=== PATIENT | male | born 1940 | race Caucasian/White ===

== ENCOUNTER 2017-09-16 14:18 | Inpatient (IN) | payer MEDICARE, OTHER ==
[2017-09-16] MEDS ORDERED: ONDANSETRON 4 MG INJ IV (18:00)
[2017-09-16] MEDS ORDERED: GLUCOSE GEL 15 GRAM TUBE BUCCAL (18:00)
[2017-09-16] MEDS ORDERED: DEXTROSE 50% 50 ML SYRINGE IV ×2 (18:00)
[2017-09-16] MEDS ORDERED: GLUCAGON 1 MG INJ IM (18:00)
[2017-09-16] MEDS ORDERED: GLUCOSE GEL 15 GRAM TUBE PO ×2 (18:00)
[2017-09-16] MEDS: SOD CHLORIDE 0.9% 1,000 ML IV (18:06)
[2017-09-16 19:40] LABS: ANION GAP 15 (8-16); BLOOD UREA NITROGEN 37 mg/dl (7-20); CALCIUM 8.3 mg/dl (8.4-10.2); CARBON DIOXIDE 23 mmol/L (21-31); CHLORIDE 105 mmol/L (97-110); CREATININE 1.43 mg/dl (0.61-1.24); GLUCOSE 166 mg/dl (70-220); POTASSIUM 5.1 mmol/L (3.5-5.1); SODIUM 138 mmol/L (135-144)
[2017-09-16] MEDS: ATORVASTATIN 40 MG TAB PO (20:26)
[2017-09-16] MEDS: CEFAZOLIN 2 GM/50 ML (PMX) 50 ML IVPB (20:27)
[2017-09-16] MEDS: METOPROLOL 25 MG TAB PO (20:27)
[2017-09-16] MEDS: INSULIN ASPART [NOVOLOG] 3 ML PEN SC (20:31)
[2017-09-16 20:47] LABS: ADD UMIC NO; UR ASCORBIC ACID 20 mg/dL (NEGATIVE); UR BILIRUBIN (Dip) NEGATIVE (NEGATIVE); UR BLOOD (Dip) NEGATIVE (NEGATIVE); UR CLARITY CLEAR (CLEAR); UR COLOR YELLOW (YELLOW); UR GLUCOSE (Dip) NEGATIVE (NEGATIVE); UR KETONES (Dip) NEGATIVE (NEGATIVE); UR LEUKOCYTE ESTERASE (Dip) NEGATIVE Leu/ul (NEGATIVE); UR NITRITE (Dip) NEGATIVE (NEGATIVE); UR SPECIFIC GRAVITY (Dip) 1.018 (1.003-1.030); UR TOTAL PROTEIN (Dip) NEGATIVE (NEGATIVE); UR UROBILINOGEN (Dip) NEGATIVE (NEGATIVE)
[2017-09-16 20:58] LABS: SODIUM,URINE RANDOM 75 mmol/L (30-90)
[2017-09-16 20:58] LABS: CREATININE,URINE RANDOM 98.32 mg/dl (20-370)
[2017-09-17] MEDS: INSULIN ASPART [NOVOLOG] 3 ML PEN SC ×5 (01:00→17:00)
[2017-09-17] MEDS: ACCU-CHEK XX ×8 (02:00→23:37)
[2017-09-17 08:45] LABS: ADD MAN DIFF? NO
[2017-09-17] MEDS: FAMOTIDINE 20 MG INJ IV ×2 (08:50→20:18)
[2017-09-17] MEDS: ASPIRIN 81 MG TAB PO (08:51)
[2017-09-17] MEDS: METOPROLOL 25 MG TAB PO (09:00)
[2017-09-17 09:05] LABS: ABNORMAL IP MESSAGE 1; BASOPHILS % 0.3 % (0.0-2.0); EOSINOPHILS # 0.1 10^3/ul (0.0-0.5); EOSINOPHILS % 1.1 % (0.0-7.0); HEMOGLOBIN 11.1 g/dl (14.0-18.0); LYMPHOCYTES # 1.2 10^3/ul (0.8-2.9); MEAN CORPUSCULAR HEMOGLOBIN 33.9 pg (29.0-33.0); MEAN CORPUSCULAR HGB CONC 32.6 g/dl (32.0-37.0); MEAN PLATELET VOLUME 13.6 fl (7.4-10.4); MONOCYTE # 0.7 10^3/ul (0.3-0.9); MONOCYTES % 7.5 % (0.0-11.0); NEUTROPHIL # 7.6 10^3/ul (1.6-7.5); NEUTROPHILS % 77.1 % (39.0-77.0); PLATELET COUNT 96 10^3/UL (140-415); POSITIVE DIFF @See below; RED BLOOD COUNT 3.27 10^6/ul (4.70-6.10); RED CELL DISTRIBUTION WIDTH 14.6 % (11.5-14.5)
[2017-09-17 09:05] LABS: WHITE BLOOD COUNT 9.8 10^3/ul (4.8-10.8)
[2017-09-17 09:20] LABS: ANION GAP 14 (8-16); BLOOD UREA NITROGEN 36 mg/dl (7-20); CALCIUM 8.6 mg/dl (8.4-10.2); CARBON DIOXIDE 26 mmol/L (21-31); CHLORIDE 109 mmol/L (97-110); CREATININE 1.33 mg/dl (0.61-1.24); GLUCOSE 103 mg/dl (70-220); POTASSIUM 5.2 mmol/L (3.5-5.1); SODIUM 144 mmol/L (135-144)
[2017-09-17 09:23] LABS: MAGNESIUM 1.9 mg/dl (1.7-2.5)
[2017-09-17] MEDS: hydrALAzine 20 MG INJ IV (11:51)
[2017-09-17] MEDS ORDERED: VANCOMYCIN 1 GM INJ (12:09)
[2017-09-17] MEDS ORDERED: SUCCINYLCHOLINE CHLORIDE 100 MG/5 ML SYG IV ×2 (12:48→13:03)
[2017-09-17] MEDS ORDERED: MIDAZOLAM 5 ML ×2 (12:48)
[2017-09-17] MEDS ORDERED: PROPOFOL 20 ML (12:48)
[2017-09-17] MEDS ORDERED: NITROGLYCERIN 50 MG/D5W (PMX) 250 ML (12:49)
[2017-09-17] MEDS ORDERED: PROTAMINE 250 MG INJ ×2 (12:49→16:17)
[2017-09-17] MEDS ORDERED: HEPARIN 1000 UNITS/ML 10 ML INJ ×3 (12:49→14:52)
[2017-09-17] MEDS ORDERED: ROCURONIUM 50 MG INJ (12:49)
[2017-09-17] MEDS: NORepinephrine 8MG/250 ML (PMX 250 ML IV (13:00)
[2017-09-17] MEDS: MILRINONE LACTATE 2 MG in SOD CHLORIDE 0.9% 50 ML IV (13:00)
[2017-09-17] MEDS: HEPARIN (10000 UNITS/ML) 10,000 UNIT, MILRINONE LACTATE 10 MG in SOD CHLORIDE 0.9% 1,00... SC (13:00)
[2017-09-17] MEDS: INSULIN HUMAN REGULAR 100 UNIT in SOD CHLORIDE 0.9% 99 ML IVPB (13:00)
[2017-09-17] MEDS: EPINEPHrine 4 MG in DEXTROSE 5% 246 ML IV (13:00)
[2017-09-17] MEDS ORDERED: ALBUMIN HUMAN 25% 300 ML (13:03)
[2017-09-17] MEDS ORDERED: CA CHLORIDE 10% 10 ML SYRINGE (13:04)
[2017-09-17] MEDS ORDERED: LIDOCAINE 100 MG SYRINGE (13:05)
[2017-09-17] MEDS ORDERED: POTASSIUM CHLORIDE 40 MEQ INJ (13:05)
[2017-09-17] MEDS ORDERED: MANNITOL 20% 250 ML IV (13:06)
[2017-09-17] MEDS ORDERED: PHENYLephrine 10 MG INJ (13:06)
[2017-09-17] MEDS ORDERED: MAGNESIUM SULFATE (MG) 50% 10 ML INJ (13:06)
[2017-09-17] MEDS ORDERED: PHENYLephrine (100 MCG/ML) 5ML SYG (13:07)
[2017-09-17] MEDS ORDERED: NA BICARBONATE 8.4% 50 ML SYG ×2 (13:08→15:27)
[2017-09-17] MEDS ORDERED: CEFAZOLIN 1 GM INJ (14:15)
[2017-09-17] MEDS ORDERED: morphine 10 MG INJ ×2 (14:28→14:54)
[2017-09-17] MEDS ORDERED: PROPOFOL 100 ML (14:30)
[2017-09-17] MEDS: ASPIRIN 600 MG SUPP PR (16:54)
[2017-09-17] MEDS: PAPAVERINE 60 MG INJ (16:55)
[2017-09-17] MEDS: HEPARIN 1000 UNITS/ML 10 ML INJ (16:56)
[2017-09-17] MEDS: POTASSIUM CHLORIDE 40 MEQ, CALCIUM CHLORIDE 10% 1 GM in DEXTROSE 5%-0.225% NACL 1,000 ML IV (17:24)
[2017-09-17] MEDS ORDERED: HYDROmorphONE 0.5 MG/0.5 ML SYG IV ×2 (17:30)
[2017-09-17] MEDS ORDERED: MAGNESIUM SULFATE 1 GM/D5W 100 ML IVPB (17:30)
[2017-09-17] MEDS ORDERED: ACETAMINOPHEN 325 MG TAB PO (17:30)
[2017-09-17] MEDS ORDERED: POTASSIUM CHLORIDE 50 ML IVPB (17:30)
[2017-09-17] MEDS ORDERED: OXYCODONE/ACETAMINOPHEN (5/325) TAB PO (17:30)
[2017-09-17] MEDS ORDERED: ONDANSETRON 4 MG INJ IV (17:30)
[2017-09-17] MEDS ORDERED: DEXTROSE 50% 50 ML SYRINGE IV ×2 (17:30)
[2017-09-17 17:55] LABS: ADD MAN DIFF? NO
[2017-09-17 17:56] LABS: WHITE BLOOD COUNT 16.6 10^3/ul (4.8-10.8)
[2017-09-17 17:56] LABS: ABNORMAL IP MESSAGE 1; BASOPHIL # 0.1 10^3/ul (0.0-0.1); BASOPHILS % 0.3 % (0.0-2.0); EOSINOPHILS # 0.2 10^3/ul (0.0-0.5); EOSINOPHILS % 1.2 % (0.0-7.0); HEMATOCRIT 28.2 % (42.0-52.0); HEMOGLOBIN 9.4 g/dl (14.0-18.0); LYMPHOCYTES % 6.3 % (15.0-51.0); MEAN CORPUSCULAR HEMOGLOBIN 34.4 pg (29.0-33.0); MEAN CORPUSCULAR HGB CONC 33.3 g/dl (32.0-37.0); MEAN CORPUSCULAR VOLUME 103.3 fl (82.0-101.0); MEAN PLATELET VOLUME 12.7 fl (7.4-10.4); MONOCYTE # 1.1 10^3/ul (0.3-0.9); MONOCYTES % 6.7 % (0.0-11.0); NEUTROPHIL # 13.7 10^3/ul (1.6-7.5); NEUTROPHILS % 82.5 % (39.0-77.0); NUCLEATED RED BLOOD CELLS% 0.1 /100WBC (0.0-0.0); PLATELET COUNT 73 10^3/UL (140-415); POSITIVE DIFF @See below; RED BLOOD COUNT 2.73 10^6/ul (4.70-6.10); RED CELL DISTRIBUTION WIDTH 14.7 % (11.5-14.5)
[2017-09-17 18:16] LABS: INR 1.32; PARTIAL THROMBOPLASTIN TIME 32.3 Sec (25.0-35.0); PROTIME 16.6 Sec (11.9-14.9); PT RATIO 1.3
[2017-09-17 18:18] LABS: ANION GAP 15 (8-16); BLOOD UREA NITROGEN 32 mg/dl (7-20); CARBON DIOXIDE 23 mmol/L (21-31); CHLORIDE 111 mmol/L (97-110); CREATININE 1.35 mg/dl (0.61-1.24); GLUCOSE 115 mg/dl (70-220); MAGNESIUM 2.5 mg/dl (1.7-2.5); POTASSIUM 5.1 mmol/L (3.5-5.1); SODIUM 144 mmol/L (135-144)
[2017-09-17 19:44] LABS: AADO2 Arterial 520.3 mmHg (7.0-24.0); Arterial Base Excess -5.3 mmol/L (-3.0-3); Arterial Blood Gas Oxygen Sat 98.1 mmHG (95.0-100.0); Arterial COHb 0.3 % (0.0-3.0); Arterial Fraction of Oxyhgb 97.7 % (93.0-99.0); Arterial HCO3 20.3 mmol/L (22.0-26.0); Arterial MetHb 0.1 % (0.0-1.5); MODE VENT - AC; Site A-Line
[2017-09-17 19:46] LABS: MODE VENT - AC; MetHgb Mixed Venous 0.3 %; Mixed Venous COHb 0.1 %; Mixed Venous Fraction OxyHgb 60.6 %; Mixed Venous Oxygen Sat 60.8 mmHG (65.0-75.0); Mixed Venous Total Hemglobin 10.5 g/dl; Sample Type BLMV; Site VENOUS LINE
[2017-09-17] MEDS: CALCIUM CHLORIDE 10% 1 GM in DEXTROSE 5%-0.225% NACL 1,000 ML IV (19:53)
[2017-09-17] MEDS: MILRINONE LACTATE 100 ML IV (20:07)
[2017-09-17] MEDS: INSULIN HUMAN REGULAR 100 UNIT in SOD CHLORIDE 0.9% 99 ML IV (20:47)
[2017-09-17] MEDS ORDERED: FAMOTIDINE 20 MG TAB PO (21:00)
[2017-09-17] MEDS: CEFAZOLIN 1 GM/50 ML (PMX) 50 ML IVPB (21:39)
[2017-09-17] MEDS: PHENYLephrine 20MG IN 250 ML 250 ML IV (22:14)
[2017-09-17] MEDS ORDERED: ALBUMIN HUMAN 5% 250 ML (22:29)
[2017-09-17] MEDS: ALBUMIN HUMAN 5% 250 ML IV (22:38)
[2017-09-18] MEDS: ALBUMIN HUMAN 5% 250 ML IV (00:07)
[2017-09-18] MEDS: ACCU-CHEK XX ×16 (00:23→21:13)
[2017-09-18] MEDS ORDERED: FUROSEMIDE 40 MG INJ (01:03)
[2017-09-18] MEDS: FUROSEMIDE 40 MG INJ IV (01:06)
[2017-09-18] MEDS: NITROGLYCERIN 50 MG/D5W (PMX) 250 ML IV (03:24)
[2017-09-18 04:20] LABS: ADD MAN DIFF? NO
[2017-09-18 04:24] LABS: WHITE BLOOD COUNT 15.6 10^3/ul (4.8-10.8)
[2017-09-18 04:24] LABS: ABNORMAL IP MESSAGE 1; BASOPHILS % 0.1 % (0.0-2.0); HEMATOCRIT 27.3 % (42.0-52.0); HEMOGLOBIN 8.8 g/dl (14.0-18.0); LYMPHOCYTES # 0.3 10^3/ul (0.8-2.9); LYMPHOCYTES % 1.7 % (15.0-51.0); MEAN CORPUSCULAR HGB CONC 32.2 g/dl (32.0-37.0); MEAN CORPUSCULAR VOLUME 105.4 fl (82.0-101.0); MEAN PLATELET VOLUME 13.6 fl (7.4-10.4); MONOCYTE # 1.4 10^3/ul (0.3-0.9); MONOCYTES % 8.8 % (0.0-11.0); NEUTROPHIL # 13.7 10^3/ul (1.6-7.5); NEUTROPHILS % 87.4 % (39.0-77.0); PLATELET COUNT 72 10^3/UL (140-415); POSITIVE DIFF @See below; RED BLOOD COUNT 2.59 10^6/ul (4.70-6.10); RED CELL DISTRIBUTION WIDTH 15.1 % (11.5-14.5)
[2017-09-18 04:41] LABS: ANION GAP 18 (8-16); BLOOD UREA NITROGEN 39 mg/dl (7-20); CALCIUM 9.3 mg/dl (8.4-10.2); CARBON DIOXIDE 24 mmol/L (21-31); CHLORIDE 109 mmol/L (97-110); CREATININE 2.19 mg/dl (0.61-1.24); GLUCOSE 145 mg/dl (70-220); INR 1.21; MAGNESIUM 2.3 mg/dl (1.7-2.5); PHOSPHORUS 6.6 mg/dl (2.5-4.9); POTASSIUM 5.4 mmol/L (3.5-5.1); PROTIME 15.5 Sec (11.9-14.9); PT RATIO 1.2; SODIUM 146 mmol/L (135-144)
[2017-09-18 04:42] LABS: PARTIAL THROMBOPLASTIN TIME 28.1 Sec (25.0-35.0)
[2017-09-18 05:05] LABS: AADO2 Arterial 137.7 mmHg (7.0-24.0); Arterial Base Excess -3.8 mmol/L (-3.0-3); Arterial Blood Gas Oxygen Sat 95.9 mmHG (95.0-100.0); Arterial COHb 0.3 % (0.0-3.0); Arterial Fraction of Oxyhgb 95.4 % (93.0-99.0); Arterial HCO3 22.5 mmol/L (22.0-26.0); Arterial MetHb 0.2 % (0.0-1.5); Arterial Total Hemglobin 9.8 g/dl (12.0-18.0); Arterial pCO2 46.5 mmhg (35-45); Blood Gas PS 10; MODE VENT - CPAP; Site A-Line
[2017-09-18] MEDS: DOPamine-D5W 1.6 MG/ML 250 ML IV (05:34)
[2017-09-18] MEDS: CEFAZOLIN 1 GM/50 ML (PMX) 50 ML IVPB ×2 (05:36→14:50)
[2017-09-18] MEDS: BUMETANIDE 1 MG INJ IV (06:27)
[2017-09-18] MEDS: OXYCODONE/ACETAMINOPHEN (5/325) TAB PO (08:11)
[2017-09-18] MEDS: FAMOTIDINE 20 MG INJ IV ×2 (08:46→21:09)
[2017-09-18] MEDS: ASPIRIN 325 MG TAB PO (10:16)
[2017-09-18 10:56] LABS: HEMATOCRIT 26.6 % (42.0-52.0); HEMOGLOBIN 8.7 g/dl (14.0-18.0)
[2017-09-18 11:07] LABS: HEMOGLOBIN A1C 6.8 % (0-5.9)
[2017-09-18 11:15] LABS: ALBUMIN 3.7 g/dl (3.3-4.9); ANION GAP 19 (8-16); BLOOD UREA NITROGEN 44 mg/dl (7-20); CALCIUM 9.2 mg/dl (8.4-10.2); CARBON DIOXIDE 23 mmol/L (21-31); CHLORIDE 107 mmol/L (97-110); CREATININE 2.64 mg/dl (0.61-1.24); GLUCOSE 166 mg/dl (70-220); PHOSPHORUS 6.8 mg/dl (2.5-4.9); POTASSIUM 5.2 mmol/L (3.5-5.1); SODIUM 144 mmol/L (135-144)
[2017-09-18 12:51] LABS: ANION GAP 17 (8-16); BLOOD UREA NITROGEN 44 mg/dl (7-20); CALCIUM 9.1 mg/dl (8.4-10.2); CARBON DIOXIDE 24 mmol/L (21-31); CHLORIDE 108 mmol/L (97-110); CREATININE 2.78 mg/dl (0.61-1.24); GLUCOSE 141 mg/dl (70-220); SODIUM 144 mmol/L (135-144)
[2017-09-18] MEDS: CALCIUM CHLORIDE 10% 1 GM in DEXTROSE 5%-0.225% NACL 1,000 ML IV (13:17)
[2017-09-18] MEDS: SOD CHLORIDE 0.9% 1,000 ML IV (14:52)
[2017-09-18] MEDS: SOD CHLORIDE 0.9% 500 ML IV (14:53)
[2017-09-18 15:11] LABS: CREATININE, RANDOM URINE 119 mg/dL (20-370); MICROALBUMIN 0.3 mg/dL; MICROALBUMIN/CREATININE RATIO 3 (<30)
[2017-09-18] MEDS ORDERED: GLUCOSE GEL 15 GRAM TUBE BUCCAL (15:30)
[2017-09-18] MEDS ORDERED: DEXTROSE 50% 50 ML SYRINGE IV ×2 (15:30)
[2017-09-18] MEDS ORDERED: GLUCAGON 1 MG INJ IM (15:30)
[2017-09-18] MEDS ORDERED: GLUCOSE GEL 15 GRAM TUBE PO ×2 (15:30)
[2017-09-18] MEDS: INSULIN ASPART [NOVOLOG] 3 ML PEN SC ×2 (17:35→21:00)
[2017-09-18 18:38] LABS: HEMATOCRIT 27.2 % (42.0-52.0)
[2017-09-18 19:17] LABS: ANION GAP 20 (8-16); BLOOD UREA NITROGEN 47 mg/dl (7-20); CALCIUM 8.7 mg/dl (8.4-10.2); CARBON DIOXIDE 20 mmol/L (21-31); CHLORIDE 107 mmol/L (97-110); CREATININE 3.28 mg/dl (0.61-1.24); GLUCOSE 155 mg/dl (70-220); POTASSIUM 5.4 mmol/L (3.5-5.1); SODIUM 142 mmol/L (135-144)
[2017-09-18] MEDS: INSULIN GLARGINE [LANtus] 3 ML PEN SC (21:11)
[2017-09-18] MEDS: FUROSEMIDE 20 MG INJ IV (21:54)
[2017-09-19] MEDS: SOD CHLORIDE 0.9% 1,000 ML IV (04:23)
[2017-09-19 04:55] LABS: ADD MAN DIFF? NO
[2017-09-19 05:03] LABS: ABNORMAL IP MESSAGE 1; BASOPHILS % 0.1 % (0.0-2.0); HEMATOCRIT 26.8 % (42.0-52.0); HEMOGLOBIN 8.5 g/dl (14.0-18.0); LYMPHOCYTES # 0.4 10^3/ul (0.8-2.9); LYMPHOCYTES % 1.8 % (15.0-51.0); MEAN CORPUSCULAR HGB CONC 31.7 g/dl (32.0-37.0); MEAN CORPUSCULAR VOLUME 107.2 fl (82.0-101.0); MEAN PLATELET VOLUME 14.5 fl (7.4-10.4); MONOCYTE # 1.8 10^3/ul (0.3-0.9); MONOCYTES % 7.9 % (0.0-11.0); NEUTROPHIL # 19.7 10^3/ul (1.6-7.5); NEUTROPHILS % 88.6 % (39.0-77.0); NUCLEATED RED BLOOD CELLS% 0.1 /100WBC (0.0-0.0); PLATELET COUNT 64 10^3/UL (140-415); POSITIVE DIFF @See below; RED CELL DISTRIBUTION WIDTH 15.4 % (11.5-14.5)
[2017-09-19 05:03] LABS: WHITE BLOOD COUNT 22.3 10^3/ul (4.8-10.8)
[2017-09-19 05:25] LABS: INR 1.31; PROTIME 16.5 Sec (11.9-14.9); PT RATIO 1.3
[2017-09-19 05:26] LABS: PARTIAL THROMBOPLASTIN TIME 28.9 Sec (25.0-35.0)
[2017-09-19 05:29] LABS: ANION GAP 23 (8-16); BLOOD UREA NITROGEN 55 mg/dl (7-20); CALCIUM 8.3 mg/dl (8.4-10.2); CARBON DIOXIDE 20 mmol/L (21-31); CHLORIDE 107 mmol/L (97-110); CREATININE 4.06 mg/dl (0.61-1.24); GLUCOSE 180 mg/dl (70-220); POTASSIUM 5.7 mmol/L (3.5-5.1); SODIUM 144 mmol/L (135-144)
[2017-09-19] MEDS: NA POLYST SULFON 15 GM/60 ML BTL PO (06:03)
[2017-09-19] MEDS: BUMETANIDE 3 MG in DEXTROSE 5% 18 ML IV (08:26)
[2017-09-19] MEDS: FAMOTIDINE 20 MG INJ IV ×2 (08:31→20:34)
[2017-09-19] MEDS: INSULIN ASPART [NOVOLOG] 3 ML PEN SC ×5 (08:50→21:00)
[2017-09-19] MEDS: ASPIRIN 325 MG TAB PO (08:51)
[2017-09-19] MEDS: CLOPIDOGREL 75 MG TAB PO (10:00)
[2017-09-19] MEDS ORDERED: METOPROLOL (XL) 25 MG TAB PO (10:00)
[2017-09-19] MEDS: SOD CHLORIDE 0.9% 500 ML IV ×4 (11:36→21:58)
[2017-09-19 12:09] LABS: LACTIC ACID 1.8 mmol/L (0.5-2.0)
[2017-09-19 12:20] LABS: ALANINE AMINOTRANSFERASE 20 IU/L (13-69); ALBUMIN 3.8 g/dl (3.3-4.9); ALBUMIN/GLOBULIN RATIO 1.65; ALKALINE PHOSPHATASE 53 IU/L (42-121); ANION GAP 23 (8-16); ASPARTATE AMINO TRANSFERASE 19 IU/L (15-46); BLOOD UREA NITROGEN 59 mg/dl (7-20); CARBON DIOXIDE 19 mmol/L (21-31); CHLORIDE 109 mmol/L (97-110); CREATININE 4.69 mg/dl (0.61-1.24); GLUCOSE 199 mg/dl (70-220); POTASSIUM 5.1 mmol/L (3.5-5.1); SODIUM 146 mmol/L (135-144); TOTAL PROTEIN 6.1 g/dl (6.1-8.1)
[2017-09-19] MEDS: METOPROLOL 25 MG TAB NGT (13:00)
[2017-09-19] MEDS ORDERED: VANCOMYCIN IV PER PHARMACY XX (19:30)
[2017-09-19] MEDS: HEPARIN 1000 UNITS/ML 10 ML INJ CATHETER ×2 (19:56→23:51)
[2017-09-19] MEDS: INSULIN GLARGINE [LANtus] 3 ML PEN SC (20:33)
[2017-09-19] MEDS: ATORVASTATIN 40 MG TAB PO (21:00)
[2017-09-19] MEDS: VANCOMYCIN 2 GM in DEXTROSE 5% 500 ML IVPB (23:53)
[2017-09-20] MEDS: INSULIN ASPART [NOVOLOG] 3 ML PEN SC ×6 (01:37→20:35)
[2017-09-20] MEDS ORDERED: DILTIAZEM 25 MG INJ ×3 (01:41→02:08)
[2017-09-20] MEDS: ACCU-CHEK XX (01:51)
[2017-09-20 02:12] LABS: AADO2 Arterial 123.7 mmHg (7.0-24.0); Allen Test ACCEPTAB; Arterial Base Excess 0.1 mmol/L (-3.0-3); Arterial Blood Gas Oxygen Sat 97.2 mmHG (95.0-100.0); Arterial COHb 0.3 % (0.0-3.0); Arterial Fraction of Oxyhgb 96.8 % (93.0-99.0); Arterial HCO3 25.3 mmol/L (22.0-26.0); Arterial MetHb 0.1 % (0.0-1.5); Arterial Total Hemglobin 9.3 g/dl (12.0-18.0); Arterial pCO2 43.6 mmhg (35-45); MODE MASK - SIMPLE; Site Left Radial
[2017-09-20] MEDS: DILTIAZEM 25 MG INJ IV (02:38)
[2017-09-20] MEDS: AMIODARONE 150MG/D5W BOLUS 100 ML IV (02:38)
[2017-09-20] MEDS: AMIODARONE 900 MG in DEXTROSE 5% 482 ML IV (03:42)
[2017-09-20 05:01] LABS: HEPATITIS B SURFACE ANTIGEN NEGATIVE (NEGATIVE)
[2017-09-20 05:30] LABS: ADD MAN DIFF? NO
[2017-09-20 05:42] LABS: ABNORMAL IP MESSAGE 1; BASOPHILS % 0.2 % (0.0-2.0); HEMATOCRIT 24.4 % (42.0-52.0); HEMOGLOBIN 8.2 g/dl (14.0-18.0); LYMPHOCYTES # 0.4 10^3/ul (0.8-2.9); LYMPHOCYTES % 1.9 % (15.0-51.0); MEAN CORPUSCULAR HEMOGLOBIN 34.7 pg (29.0-33.0); MEAN CORPUSCULAR HGB CONC 33.6 g/dl (32.0-37.0); MEAN CORPUSCULAR VOLUME 103.4 fl (82.0-101.0); MONOCYTE # 1.3 10^3/ul (0.3-0.9); MONOCYTES % 6.4 % (0.0-11.0); NEUTROPHIL # 17.6 10^3/ul (1.6-7.5); NEUTROPHILS % 88.4 % (39.0-77.0); NUCLEATED RED BLOOD CELLS% 0.2 /100WBC (0.0-0.0); PLATELET COUNT 58 10^3/UL (140-415); POSITIVE DIFF @See below; RED BLOOD COUNT 2.36 10^6/ul (4.70-6.10); RED CELL DISTRIBUTION WIDTH 15.1 % (11.5-14.5)
[2017-09-20 05:42] LABS: WHITE BLOOD COUNT 19.9 10^3/ul (4.8-10.8)
[2017-09-20] MEDS: SOD CHLORIDE 0.9% 500 ML IV ×3 (05:51→21:19)
[2017-09-20 06:33] LABS: ALANINE AMINOTRANSFERASE 24 IU/L (13-69); ALBUMIN 3.5 g/dl (3.3-4.9); ALKALINE PHOSPHATASE 57 IU/L (42-121); ANION GAP 20 (8-16); ASPARTATE AMINO TRANSFERASE 20 IU/L (15-46); BILIRUBIN,INDIRECT 0.1 mg/dl (0-1.1); BILIRUBIN,TOTAL 0.1 mg/dl (0.2-1.3); BLOOD UREA NITROGEN 50 mg/dl (7-20); CALCIUM 7.5 mg/dl (8.4-10.2); CARBON DIOXIDE 24 mmol/L (21-31); CHLORIDE 103 mmol/L (97-110); CREATININE 3.92 mg/dl (0.61-1.24); GLUCOSE 215 mg/dl (70-220); POTASSIUM 4.1 mmol/L (3.5-5.1); SODIUM 143 mmol/L (135-144)
[2017-09-20 06:36] LABS: PHOSPHORUS 5.9 mg/dl (2.5-4.9)
[2017-09-20 06:36] LABS: MAGNESIUM 1.9 mg/dl (1.7-2.5)
[2017-09-20] MEDS: FAMOTIDINE 20 MG INJ IV ×2 (08:24→20:13)
[2017-09-20] MEDS: ASPIRIN 81 MG TAB PO (09:10)
[2017-09-20] MEDS: BISACODYL 10 MG SUPP PR ×2 (09:10→20:13)
[2017-09-20] MEDS: CLOPIDOGREL 75 MG TAB PO (09:10)
[2017-09-20] MEDS: METOPROLOL 25 MG TAB NGT (09:12)
[2017-09-20] MEDS: POLYETHYLENE GLYCOL 17 GM PACKET PO ×2 (10:08→21:19)
[2017-09-20] MEDS: CEFEPIME 1GM/50 ML (PMX) 50 ML IVPB (12:06)
[2017-09-20] MEDS: POLYETHYLENE GLYCOL 3350 119 GM POWDER PO (12:21)
[2017-09-20] MEDS ORDERED: METOPROLOL 25 MG TAB NGT (14:00)
[2017-09-20 15:27] LABS: AADO2 Arterial 126.7 mmHg (7.0-24.0); Arterial Base Excess -4.2 mmol/L (-3.0-3); Arterial Blood Gas Oxygen Sat 90.7 mmHG (95.0-100.0); Arterial COHb 0.1 % (0.0-3.0); Arterial Fraction of Oxyhgb 90.6 % (93.0-99.0); Arterial HCO3 20.5 mmol/L (22.0-26.0); Arterial MetHb 0 % (0.0-1.5); Arterial Total Hemglobin 11.8 g/dl (12.0-18.0); Arterial pCO2 36.1 mmhg (35-45); MODE NASAL CANNULA; Site Right Brachial
[2017-09-20] MEDS: INSULIN GLARGINE [LANtus] 3 ML PEN SC (20:17)
[2017-09-20] MEDS ORDERED: SOD CHLORIDE 0.9% 500 ML IVPB (21:00)
[2017-09-20] MEDS: ATORVASTATIN 40 MG TAB PO (21:19)
[2017-09-20] MEDS: AMIODARONE 200 MG TAB NGT (21:19)
[2017-09-20] MEDS: HEPARIN 1000 UNITS/ML 10 ML INJ CATHETER (23:23)
[2017-09-21] MEDS: ACCU-CHEK XX (00:54)
[2017-09-21] MEDS: INSULIN ASPART [NOVOLOG] 3 ML PEN SC ×6 (00:54→21:00)
[2017-09-21] MEDS: SOD CHLORIDE 0.9% 500 ML IV ×3 (03:00→21:02)
[2017-09-21 06:14] LABS: ADD MAN DIFF? NO
[2017-09-21 06:18] LABS: ABNORMAL IP MESSAGE 1; BASOPHILS % 0.2 % (0.0-2.0); EOSINOPHILS % 0.1 % (0.0-7.0); HEMATOCRIT 22.8 % (42.0-52.0); HEMOGLOBIN 7.9 g/dl (14.0-18.0); LYMPHOCYTES # 0.6 10^3/ul (0.8-2.9); LYMPHOCYTES % 3.2 % (15.0-51.0); MEAN CORPUSCULAR HGB CONC 34.6 g/dl (32.0-37.0); MEAN CORPUSCULAR VOLUME 100.9 fl (82.0-101.0); MONOCYTE # 1.2 10^3/ul (0.3-0.9); MONOCYTES % 6.1 % (0.0-11.0); NEUTROPHIL # 16.5 10^3/ul (1.6-7.5); NEUTROPHILS % 84.9 % (39.0-77.0); NUCLEATED RED BLOOD CELLS # 0.1 10^3/ul (0.0-0.0); NUCLEATED RED BLOOD CELLS% 0.5 /100WBC (0.0-0.0); POSITIVE DIFF @See below; RED BLOOD COUNT 2.26 10^6/ul (4.70-6.10); RED CELL DISTRIBUTION WIDTH 14.7 % (11.5-14.5)
[2017-09-21 06:18] LABS: WHITE BLOOD COUNT 19.4 10^3/ul (4.8-10.8)
[2017-09-21 06:26] LABS: PLATELET COUNT 72 10^3/UL (140-415)
[2017-09-21 06:43] LABS: PHOSPHORUS 7.2 mg/dl (2.5-4.9)
[2017-09-21 06:47] LABS: VANCOMYCIN,RANDOM 13.7 ug/ml
[2017-09-21 07:39] LABS: ANION GAP 18 (8-16); BLOOD UREA NITROGEN 60 mg/dl (7-20); CALCIUM 7.2 mg/dl (8.4-10.2); CARBON DIOXIDE 29 mmol/L (21-31); CHLORIDE 101 mmol/L (97-110); CREATININE 4.37 mg/dl (0.61-1.24); GLUCOSE 129 mg/dl (70-220); POTASSIUM 3.9 mmol/L (3.5-5.1); SODIUM 144 mmol/L (135-144)
[2017-09-21] MEDS: ASPIRIN 81 MG TAB PO (08:16)
[2017-09-21] MEDS: CLOPIDOGREL 75 MG TAB PO (08:16)
[2017-09-21] MEDS: AMIODARONE 200 MG TAB NGT ×3 (08:16→21:02)
[2017-09-21] MEDS: FAMOTIDINE 20 MG INJ IV (08:16)
[2017-09-21] MEDS ORDERED: LORAZEPAM 2 MG INJ (11:38)
[2017-09-21] MEDS: LORAZEPAM 2 MG INJ IV (13:08)
[2017-09-21] MEDS: CEFEPIME 1GM/50 ML (PMX) 50 ML IVPB (13:12)
[2017-09-21] MEDS: HEPARIN 1000 UNITS/ML 10 ML INJ CATHETER (18:44)
[2017-09-21] MEDS: INSULIN GLARGINE [LANtus] 3 ML PEN SC (20:06)
[2017-09-21 20:15] LABS: HEPATITIS B SURFACE ANTIBODY POSITIVE (NEGATIVE)
[2017-09-21] MEDS: ATORVASTATIN 40 MG TAB PO (21:02)
[2017-09-22] MEDS: INSULIN ASPART [NOVOLOG] 3 ML PEN SC ×7 (01:27→21:51)
[2017-09-22] MEDS: ACCU-CHEK XX (02:04)
[2017-09-22 05:44] LABS: ADD MAN DIFF? NO
[2017-09-22 05:46] LABS: ABNORMAL IP MESSAGE 1; BASOPHILS % 0.2 % (0.0-2.0); EOSINOPHILS % 0.1 % (0.0-7.0); HEMATOCRIT 22.5 % (42.0-52.0); HEMOGLOBIN 7.5 g/dl (14.0-18.0); LYMPHOCYTES # 0.5 10^3/ul (0.8-2.9); LYMPHOCYTES % 2.4 % (15.0-51.0); MEAN CORPUSCULAR HEMOGLOBIN 33.9 pg (29.0-33.0); MEAN CORPUSCULAR HGB CONC 33.3 g/dl (32.0-37.0); MEAN CORPUSCULAR VOLUME 101.8 fl (82.0-101.0); MEAN PLATELET VOLUME 12.6 fl (7.4-10.4); MONOCYTE # 1.6 10^3/ul (0.3-0.9); MONOCYTES % 7.8 % (0.0-11.0); NEUTROPHIL # 17.7 10^3/ul (1.6-7.5); NEUTROPHILS % 83.7 % (39.0-77.0); NUCLEATED RED BLOOD CELLS # 0.2 10^3/ul (0.0-0.0); NUCLEATED RED BLOOD CELLS% 0.7 /100WBC (0.0-0.0); PLATELET COUNT 78 10^3/UL (140-415); POSITIVE DIFF @See below; RED BLOOD COUNT 2.21 10^6/ul (4.70-6.10); RED CELL DISTRIBUTION WIDTH 15.1 % (11.5-14.5)
[2017-09-22 05:46] LABS: WHITE BLOOD COUNT 21.1 10^3/ul (4.8-10.8)
[2017-09-22 06:11] LABS: MAGNESIUM 2.1 mg/dl (1.7-2.5)
[2017-09-22 06:14] LABS: ANION GAP 15 (8-16); BLOOD UREA NITROGEN 58 mg/dl (7-20); CALCIUM 7.2 mg/dl (8.4-10.2); CARBON DIOXIDE 28 mmol/L (21-31); CHLORIDE 103 mmol/L (97-110); CREATININE 3.64 mg/dl (0.61-1.24); GLUCOSE 147 mg/dl (70-220); POTASSIUM 3.8 mmol/L (3.5-5.1); SODIUM 142 mmol/L (135-144)
[2017-09-22] MEDS: CLOPIDOGREL 75 MG TAB PO (08:57)
[2017-09-22] MEDS: ASPIRIN 81 MG TAB PO (08:57)
[2017-09-22] MEDS: AMIODARONE 200 MG TAB NGT ×3 (08:57→21:08)
[2017-09-22 12:08] LABS: HEMOGLOBIN 7.7 g/dl (14.0-18.0)
[2017-09-22 12:28] LABS: ADD UMIC YES; UR AMORPHOUS CRYSTAL FEW /HPF (NONE SEEN); UR ASCORBIC ACID NEGATIVE (NEGATIVE); UR BACTERIA FEW /HPF (NONE SEEN); UR BILIRUBIN (Dip) NEGATIVE (NEGATIVE); UR BLOOD (Dip) 3+ mg/dL (NEGATIVE); UR CLARITY TURBID (CLEAR); UR COLOR AMBER (YELLOW); UR GLUCOSE (Dip) NEGATIVE (NEGATIVE); UR HYALINE CAST FEW /HPF (NONE SEEN); UR KETONES (Dip) NEGATIVE (NEGATIVE); UR LEUKOCYTE ESTERASE (Dip) 1+ Leu/ul (NEGATIVE); UR MUCUS MODERATE /HPF (NONE SEEN); UR NITRITE (Dip) NEGATIVE (NEGATIVE); UR NONSQUAMOUS EPITHELIAL CELL 2 /HPF (NONE SEEN); UR RBC 19 /HPF (0-5); UR SPECIFIC GRAVITY (Dip) 1.016 (1.003-1.030); UR SQUAMOUS EPITHELIAL CELL FEW /HPF (FEW); UR TOTAL PROTEIN (Dip) 2+ mg/dl (NEGATIVE); UR UROBILINOGEN (Dip) NEGATIVE (NEGATIVE); UR WBC 68 /HPF (0-5)
[2017-09-22 12:42] LABS: CREATININE,URINE RANDOM 198.53 mg/dl (20-370)
[2017-09-22 12:42] LABS: SODIUM,URINE RANDOM 18 mmol/L (30-90)
[2017-09-22] MEDS: CEFEPIME 1GM/50 ML (PMX) 50 ML IVPB (13:17)
[2017-09-22] MEDS: INSULIN GLARGINE [LANtus] 3 ML PEN SC (20:57)
[2017-09-22] MEDS: METOPROLOL 25 MG TAB PO (21:07)
[2017-09-22] MEDS: ATORVASTATIN 40 MG TAB PO (21:07)
[2017-09-23] MEDS: INSULIN ASPART [NOVOLOG] 3 ML PEN SC ×6 (01:34→21:00)
[2017-09-23] MEDS: ACCU-CHEK XX (02:27)
[2017-09-23 08:34] LABS: ABNORMAL IP MESSAGE 1; HEMATOCRIT 22.9 % (42.0-52.0); HEMOGLOBIN 7.7 g/dl (14.0-18.0); MEAN CORPUSCULAR HEMOGLOBIN 34.7 pg (29.0-33.0); MEAN CORPUSCULAR HGB CONC 33.6 g/dl (32.0-37.0); MEAN CORPUSCULAR VOLUME 103.2 fl (82.0-101.0); MEAN PLATELET VOLUME 13.8 fl (7.4-10.4); NUCLEATED RED BLOOD CELLS% 1.5 /100WBC (0.0-0.0); PLATELET COUNT 106 10^3/UL (140-415); POSITIVE DIFF @See below; RED BLOOD COUNT 2.22 10^6/ul (4.70-6.10); RED CELL DISTRIBUTION WIDTH 15.4 % (11.5-14.5)
[2017-09-23 08:34] LABS: WHITE BLOOD COUNT 19.9 10^3/ul (4.8-10.8)
[2017-09-23 08:52] LABS: ADD MAN DIFF? YES
[2017-09-23 08:54] LABS: ANION GAP 17 (8-16); BLOOD UREA NITROGEN 98 mg/dl (7-20); CALCIUM 7.3 mg/dl (8.4-10.2); CARBON DIOXIDE 31 mmol/L (21-31); CHLORIDE 102 mmol/L (97-110); CREATININE 4.23 mg/dl (0.61-1.24); GLUCOSE 165 mg/dl (70-220); MAGNESIUM 2.5 mg/dl (1.7-2.5); PHOSPHORUS 5.6 mg/dl (2.5-4.9); POTASSIUM 3.9 mmol/L (3.5-5.1); SODIUM 146 mmol/L (135-144)
[2017-09-23 10:00] LABS: ANISOCYTOSIS 1+ (0-0); BAND NEUTROPHILS #M 1.5 10^3/ul (0.0-0.6); BAND NEUTROPHILS % (M) 8 % (0-4); EOSINOPHILS % (M) 1 % (0-7); ERYTHROBLAST% (NRBC) (M) 1 % (0-0); GIANT THROMBO% (M) 1 % (0-0); HYPOCHROMASIA 1+ (0-0); LYMPHOCYTES #M 0.1 10^3/ul (0.8-2.9); LYMPHOCYTES % (M) 1 % (15-51); METAMYELOCYTES #M 0.3 10^3/ul (0.0-0.0); METAMYELOCYTES %M 2 % (0-0); MONOCYTE #M 0.7 10^3/ul (0.3-0.9); MONOCYTES % (M) 4 % (0-11); MYELOCYTES #M 2.1 10^3/ul (0.0-0.0); MYELOCYTES % (M) 11 % (0-0); PLATELET ESTIMATE DECREASED; POLYCHROMASIA 3+ (0-0); PROMYELOCYTES #M 0.3 10^3/ul (0-0); PROMYELOCYTES % (M) 2 % (0-0); SEG NEUT #M 14.4 10^3/ul (1.6-7.5); SEGMENTED NEUTROPHILS (M) % 71 % (39-77)
[2017-09-23] MEDS: CLOPIDOGREL 75 MG TAB PO (10:23)
[2017-09-23] MEDS: ASPIRIN 81 MG TAB PO (10:23)
[2017-09-23] MEDS: AMIODARONE 200 MG TAB NGT ×3 (10:24→23:13)
[2017-09-23] MEDS: METOPROLOL 25 MG TAB PO ×2 (10:24→23:12)
[2017-09-23] MEDS: HEPARIN 1000 UNITS/ML 10 ML INJ CATHETER (10:31)
[2017-09-23] MEDS: HEPARIN 5,000 UNIT/0.5 ML VIAL SC ×2 (10:46→23:23)
[2017-09-23] MEDS ORDERED: METOPROLOL 5 MG INJ IV (12:00)
[2017-09-23] MEDS: CEFEPIME 1GM/50 ML (PMX) 50 ML IVPB (14:46)
[2017-09-23 15:47] LABS: CREATININE, RANDOM URINE 214 mg/dL (20-370); MICROALBUMIN 29.9 mg/dL; MICROALBUMIN/CREATININE RATIO 140 (<30)
[2017-09-23] MEDS: LEVOFLOXACIN 750 MG TABLET PO (17:29)
[2017-09-23] MEDS: ATORVASTATIN 40 MG TAB PO (23:08)
[2017-09-23] MEDS: INSULIN GLARGINE [LANtus] 3 ML PEN SC (23:20)
[2017-09-24] MEDS: INSULIN ASPART [NOVOLOG] 3 ML PEN SC ×6 (01:00→20:47)
[2017-09-24] MEDS: ACCU-CHEK XX (02:48)
[2017-09-24 07:49] LABS: ADD MAN DIFF? NO
[2017-09-24 07:56] LABS: WHITE BLOOD COUNT 17.6 10^3/ul (4.8-10.8)
[2017-09-24 07:56] LABS: ABNORMAL IP MESSAGE 1; BASOPHIL # 0.1 10^3/ul (0.0-0.1); BASOPHILS % 0.8 % (0.0-2.0); EOSINOPHILS # 0.1 10^3/ul (0.0-0.5); EOSINOPHILS % 0.7 % (0.0-7.0); HEMOGLOBIN 7.8 g/dl (14.0-18.0); LYMPHOCYTES # 0.7 10^3/ul (0.8-2.9); LYMPHOCYTES % 3.8 % (15.0-51.0); MEAN CORPUSCULAR HEMOGLOBIN 34.2 pg (29.0-33.0); MEAN CORPUSCULAR HGB CONC 32.5 g/dl (32.0-37.0); MEAN CORPUSCULAR VOLUME 105.3 fl (82.0-101.0); MEAN PLATELET VOLUME 13.4 fl (7.4-10.4); MONOCYTE # 1.3 10^3/ul (0.3-0.9); MONOCYTES % 7.4 % (0.0-11.0); NEUTROPHIL # 11.6 10^3/ul (1.6-7.5); NEUTROPHILS % 65.9 % (39.0-77.0); NUCLEATED RED BLOOD CELLS # 0.2 10^3/ul (0.0-0.0); NUCLEATED RED BLOOD CELLS% 1.1 /100WBC (0.0-0.0); PLATELET COUNT 111 10^3/UL (140-415); POSITIVE DIFF @See below; RED BLOOD COUNT 2.28 10^6/ul (4.70-6.10); RED CELL DISTRIBUTION WIDTH 15.3 % (11.5-14.5)
[2017-09-24] MEDS: METOPROLOL 25 MG TAB PO ×2 (08:01→20:35)
[2017-09-24] MEDS: AMIODARONE 200 MG TAB NGT ×3 (08:01→20:35)
[2017-09-24 08:21] LABS: ANION GAP 15 (8-16); BLOOD UREA NITROGEN 87 mg/dl (7-20); CARBON DIOXIDE 31 mmol/L (21-31); CHLORIDE 102 mmol/L (97-110); GLUCOSE 157 mg/dl (70-220); MAGNESIUM 2.3 mg/dl (1.7-2.5); PHOSPHORUS 5.6 mg/dl (2.5-4.9); POTASSIUM 4.4 mmol/L (3.5-5.1); SODIUM 144 mmol/L (135-144)
[2017-09-24] MEDS: ASPIRIN 81 MG TAB PO (10:01)
[2017-09-24] MEDS: CLOPIDOGREL 75 MG TAB PO (10:01)
[2017-09-24] MEDS: HEPARIN 5,000 UNIT/0.5 ML VIAL SC ×2 (10:05→20:46)
[2017-09-24] MEDS: HEPARIN 1000 UNITS/ML 10 ML INJ CATHETER (16:29)
[2017-09-24] MEDS: CEFEPIME 1GM/50 ML (PMX) 50 ML IVPB (16:52)
[2017-09-24] MEDS: ATORVASTATIN 40 MG TAB PO (20:35)
[2017-09-24] MEDS: INSULIN GLARGINE [LANtus] 3 ML PEN SC (20:37)
[2017-09-24] MEDS: DEXTROSE 5%-0.45% NACL 1,000 ML IV (22:23)
[2017-09-25] MEDS: INSULIN ASPART [NOVOLOG] 3 ML PEN SC ×5 (01:00→17:58)
[2017-09-25] MEDS: ACCU-CHEK XX ×2 (02:00→02:27)
[2017-09-25] MEDS ORDERED: LEVOFLOXACIN 500 MG TAB PO (06:00)
[2017-09-25 08:19] LABS: ADD MAN DIFF? NO
[2017-09-25 08:24] LABS: ABNORMAL IP MESSAGE 1; BASOPHIL # 0.1 10^3/ul (0.0-0.1); BASOPHILS % 0.6 % (0.0-2.0); EOSINOPHILS # 0.2 10^3/ul (0.0-0.5); EOSINOPHILS % 1.2 % (0.0-7.0); HEMATOCRIT 24.2 % (42.0-52.0); HEMOGLOBIN 7.9 g/dl (14.0-18.0); LYMPHOCYTES # 0.9 10^3/ul (0.8-2.9); LYMPHOCYTES % 4.5 % (15.0-51.0); MEAN CORPUSCULAR HEMOGLOBIN 33.6 pg (29.0-33.0); MEAN CORPUSCULAR HGB CONC 32.6 g/dl (32.0-37.0); MEAN PLATELET VOLUME 13.3 fl (7.4-10.4); MONOCYTE # 1.7 10^3/ul (0.3-0.9); MONOCYTES % 8.4 % (0.0-11.0); NEUTROPHIL # 12.4 10^3/ul (1.6-7.5); NEUTROPHILS % 62.9 % (39.0-77.0); NUCLEATED RED BLOOD CELLS # 0.1 10^3/ul (0.0-0.0); NUCLEATED RED BLOOD CELLS% 0.4 /100WBC (0.0-0.0); PLATELET COUNT 128 10^3/UL (140-415); POSITIVE DIFF @See below; RED BLOOD COUNT 2.35 10^6/ul (4.70-6.10); RED CELL DISTRIBUTION WIDTH 15.2 % (11.5-14.5)
[2017-09-25 08:24] LABS: WHITE BLOOD COUNT 19.8 10^3/ul (4.8-10.8)
[2017-09-25 09:03] LABS: ANION GAP 11 (8-16); BLOOD UREA NITROGEN 63 mg/dl (7-20); CALCIUM 7.9 mg/dl (8.4-10.2); CARBON DIOXIDE 35 mmol/L (21-31); CHLORIDE 101 mmol/L (97-110); CREATININE 2.72 mg/dl (0.61-1.24); GLUCOSE 122 mg/dl (70-220); MAGNESIUM 2.2 mg/dl (1.7-2.5); PHOSPHORUS 4.1 mg/dl (2.5-4.9); POTASSIUM 4.1 mmol/L (3.5-5.1); SODIUM 143 mmol/L (135-144)
[2017-09-25] MEDS: ASPIRIN 81 MG TAB PO (09:07)
[2017-09-25] MEDS: METOPROLOL 25 MG TAB PO (09:08)
[2017-09-25] MEDS: CLOPIDOGREL 75 MG TAB PO (09:09)
[2017-09-25] MEDS: AMIODARONE 200 MG TAB NGT (09:09)
[2017-09-25 09:26] LABS: ANISOCYTOSIS 1+ (0-0); BAND NEUTROPHILS #M 1.1 10^3/ul (0.0-0.6); BAND NEUTROPHILS % (M) 6 % (0-4); EOSINOPHILS % (M) 3 % (0-7); ERYTHROBLAST% (NRBC) (M) 1 % (0-0); GIANT THROMBO% (M) 1 % (0-0); HYPOCHROMASIA 1+ (0-0); LYMPHOCYTES #M 0.7 10^3/ul (0.8-2.9); LYMPHOCYTES % (M) 4 % (15-51); METAMYELOCYTES #M 0.9 10^3/ul (0.0-0.0); METAMYELOCYTES %M 5 % (0-0); MICROCYTOSIS 1+ (0-0); MONOCYTE #M 1.9 10^3/ul (0.3-0.9); MONOCYTES % (M) 10 % (0-11); MYELOCYTES #M 1.5 10^3/ul (0.0-0.0); MYELOCYTES % (M) 8 % (0-0); PLATELET ESTIMATE DECREASED; POLYCHROMASIA 1+ (0-0); PROMYELOCYTES #M 0.5 10^3/ul (0-0); PROMYELOCYTES % (M) 3 % (0-0); SEG NEUT #M 12.3 10^3/ul (1.6-7.5); SEGMENTED NEUTROPHILS (M) % 61 % (39-77); SMUDGE%M 2 % (0-0)
[2017-09-25] MEDS: HEPARIN 5,000 UNIT/0.5 ML VIAL SC ×2 (10:49→20:36)
[2017-09-25 15:17] LABS: COMPLEMENT C3 97 mg/dl (88-165); COMPLEMENT C4 29 mg/dl (14-44)
[2017-09-25] MEDS: CEFEPIME 1GM/50 ML (PMX) 50 ML IVPB (17:53)
[2017-09-25] MEDS: CALCIUM GLUCONATE 10% 1 GM in DEXTROSE 5% 100 ML IVPB (19:56)
[2017-09-25] MEDS ORDERED: ACCUCHECK 2 AM XX (20:00)
[2017-09-25] MEDS: Insulin NOVOLOG SS MODERATE Algorithm (SS with meals and bedtime) SC (20:28)
[2017-09-25] MEDS: ATORVASTATIN 40 MG TAB PO (20:30)
[2017-09-25] MEDS: METOPROLOL 50 MG TAB PO (20:33)
[2017-09-25] MEDS ORDERED: INSULIN ASPART [NOVOLOG] 3 ML PEN SC (21:00)
[2017-09-25] MEDS: INSULIN GLARGINE [LANtus] 3 ML PEN SC (21:40)
[2017-09-26] MEDS: ACCU-CHEK XX (01:58)
[2017-09-26 07:21] LABS: ADD MAN DIFF? NO
[2017-09-26 07:23] LABS: ABNORMAL IP MESSAGE 1; BASOPHILS % 0.1 % (0.0-2.0); EOSINOPHILS # 0.4 10^3/ul (0.0-0.5); EOSINOPHILS % 2.1 % (0.0-7.0); HEMATOCRIT 22.8 % (42.0-52.0); HEMOGLOBIN 7.6 g/dl (14.0-18.0); LYMPHOCYTES # 0.8 10^3/ul (0.8-2.9); LYMPHOCYTES % 4.5 % (15.0-51.0); MEAN CORPUSCULAR HEMOGLOBIN 33.5 pg (29.0-33.0); MEAN CORPUSCULAR HGB CONC 33.3 g/dl (32.0-37.0); MEAN CORPUSCULAR VOLUME 100.4 fl (82.0-101.0); MONOCYTE # 1.3 10^3/ul (0.3-0.9); MONOCYTES % 7.4 % (0.0-11.0); NEUTROPHIL # 11.3 10^3/ul (1.6-7.5); NEUTROPHILS % 65.7 % (39.0-77.0); NUCLEATED RED BLOOD CELLS% 0.1 /100WBC (0.0-0.0); PLATELET COUNT 128 10^3/UL (140-415); POSITIVE DIFF @See below; RED BLOOD COUNT 2.27 10^6/ul (4.70-6.10); RED CELL DISTRIBUTION WIDTH 15.4 % (11.5-14.5)
[2017-09-26 07:23] LABS: WHITE BLOOD COUNT 17.3 10^3/ul (4.8-10.8)
[2017-09-26 07:49] LABS: ANION GAP 15 (8-16); BLOOD UREA NITROGEN 81 mg/dl (7-20); CALCIUM 7.6 mg/dl (8.4-10.2); CARBON DIOXIDE 30 mmol/L (21-31); CHLORIDE 101 mmol/L (97-110); GLUCOSE 144 mg/dl (70-220); MAGNESIUM 2.1 mg/dl (1.7-2.5); PHOSPHORUS 4.2 mg/dl (2.5-4.9); POTASSIUM 3.6 mmol/L (3.5-5.1); SODIUM 142 mmol/L (135-144)
[2017-09-26] MEDS: CLOPIDOGREL 75 MG TAB PO (08:51)
[2017-09-26] MEDS: ASPIRIN 81 MG TAB PO (08:51)
[2017-09-26] MEDS: ALLOPURINOL 300 MG TAB PO (08:52)
[2017-09-26] MEDS: AMIODARONE 200 MG TAB NGT (08:53)
[2017-09-26] MEDS: METOPROLOL 50 MG TAB PO ×2 (08:53→20:41)
[2017-09-26] MEDS: Insulin NOVOLOG SS MODERATE Algorithm (SS with meals and bedtime) SC ×4 (09:12→20:42)
[2017-09-26] MEDS: HEPARIN 5,000 UNIT/0.5 ML VIAL SC ×2 (12:33→21:56)
[2017-09-26] MEDS: CEFEPIME 1GM/50 ML (PMX) 50 ML IVPB (15:45)
[2017-09-26] MEDS: INSULIN GLARGINE [LANtus] 3 ML PEN SC (20:31)
[2017-09-26] MEDS: ATORVASTATIN 40 MG TAB PO (20:41)
[2017-09-27] MEDS: ACCU-CHEK XX (03:00)
[2017-09-27 06:19] LABS: WHITE BLOOD COUNT 18.5 10^3/ul (4.8-10.8)
[2017-09-27 06:19] LABS: ABNORMAL IP MESSAGE 1; HEMATOCRIT 24.7 % (42.0-52.0); HEMOGLOBIN 8.4 g/dl (14.0-18.0); MEAN CORPUSCULAR HEMOGLOBIN 33.6 pg (29.0-33.0); MEAN CORPUSCULAR VOLUME 98.8 fl (82.0-101.0); MEAN PLATELET VOLUME 13.2 fl (7.4-10.4); NUCLEATED RED BLOOD CELLS% 0.2 /100WBC (0.0-0.0); PLATELET COUNT 159 10^3/UL (140-415); POSITIVE DIFF @See below
[2017-09-27 06:38] LABS: ANION GAP 16 (8-16); BLOOD UREA NITROGEN 87 mg/dl (7-20); CALCIUM 7.5 mg/dl (8.4-10.2); CARBON DIOXIDE 29 mmol/L (21-31); CHLORIDE 101 mmol/L (97-110); GLUCOSE 114 mg/dl (70-220); MAGNESIUM 2.1 mg/dl (1.7-2.5); PHOSPHORUS 4.3 mg/dl (2.5-4.9); POTASSIUM 3.8 mmol/L (3.5-5.1); SODIUM 142 mmol/L (135-144)
[2017-09-27 06:43] LABS: ADD MAN DIFF? YES
[2017-09-27] MEDS: METOPROLOL 50 MG TAB PO ×2 (08:30→20:43)
[2017-09-27] MEDS: ASPIRIN 81 MG TAB PO (08:34)
[2017-09-27] MEDS: HEPARIN 5,000 UNIT/0.5 ML VIAL SC ×2 (08:34→20:45)
[2017-09-27] MEDS: AMIODARONE 200 MG TAB NGT (08:34)
[2017-09-27] MEDS: CLOPIDOGREL 75 MG TAB PO (08:34)
[2017-09-27] MEDS: ALLOPURINOL 300 MG TAB PO (08:34)
[2017-09-27] MEDS: Insulin NOVOLOG SS MODERATE Algorithm (SS with meals and bedtime) SC ×4 (08:36→20:46)
[2017-09-27 09:05] LABS: ANISOCYTOSIS 1+ (0-0); BAND NEUTROPHILS #M 0.3 10^3/ul (0.0-0.6); BAND NEUTROPHILS % (M) 2 % (0-4); BURR CELLS 1+ (0-0); EOSINOPHILS % (M) 3 % (0-7); LYMPHOCYTES #M 1.1 10^3/ul (0.8-2.9); LYMPHOCYTES % (M) 6 % (15-51); METAMYELOCYTES #M 0.9 10^3/ul (0.0-0.0); METAMYELOCYTES %M 5 % (0-0); MONOCYTE #M 1.2 10^3/ul (0.3-0.9); MONOCYTES % (M) 7 % (0-11); MYELOCYTES #M 1.4 10^3/ul (0.0-0.0); MYELOCYTES % (M) 8 % (0-0); OVALOCYTES 1+ (0-0); PLATELET ESTIMATE NORMAL; PLATELET MORPHOLOGY COMMENT @See below; POLYCHROMASIA 2+ (0-0); PROMYELOCYTES #M 0.1 10^3/ul (0-0); PROMYELOCYTES % (M) 1 % (0-0); SEG NEUT #M 12.6 10^3/ul (1.6-7.5); SEGMENTED NEUTROPHILS (M) % 68 % (39-77); SMUDGE%M 4 % (0-0)
[2017-09-27] MEDS: CALCIUM GLUCONATE 10% 2 GM in DEXTROSE 5% 100 ML IVPB (14:38)
[2017-09-27] MEDS: ATORVASTATIN 40 MG TAB PO (20:43)
[2017-09-27] MEDS: TAMSULOSIN (SR) 0.4 MG CAP PO (20:43)
[2017-09-27] MEDS: INSULIN GLARGINE [LANtus] 3 ML PEN SC (20:45)
[2017-09-28] MEDS: ACCU-CHEK XX (02:00)
[2017-09-28 06:44] LABS: ANION GAP 14 (8-16); BLOOD UREA NITROGEN 81 mg/dl (7-20); CALCIUM 7.4 mg/dl (8.4-10.2); CARBON DIOXIDE 28 mmol/L (21-31); CHLORIDE 104 mmol/L (97-110); CREATININE 2.51 mg/dl (0.61-1.24); GLUCOSE 104 mg/dl (70-220); MAGNESIUM 1.9 mg/dl (1.7-2.5); PHOSPHORUS 4.6 mg/dl (2.5-4.9); POTASSIUM 4.2 mmol/L (3.5-5.1); SODIUM 142 mmol/L (135-144)
[2017-09-28] MEDS: Insulin NOVOLOG SS MODERATE Algorithm (SS with meals and bedtime) SC ×3 (08:15→17:39)
[2017-09-28] MEDS: CLOPIDOGREL 75 MG TAB PO (08:55)
[2017-09-28] MEDS: METOPROLOL 50 MG TAB PO (08:55)
[2017-09-28] MEDS: ALLOPURINOL 300 MG TAB PO (08:55)
[2017-09-28] MEDS: AMIODARONE 200 MG TAB NGT (08:56)
[2017-09-28] MEDS: ASPIRIN 325 MG TAB PO (08:56)
[2017-09-28] MEDS: HEPARIN 5,000 UNIT/0.5 ML VIAL SC (08:57)
[2017-09-28] MEDS: CEFEPIME 1GM/50 ML (PMX) 50 ML IVPB (15:42)
[2017-09-28] MEDS ORDERED: METOPROLOL 25 MG TAB PO (21:00)
[2017-09-29] MEDS ORDERED: ASPIRIN 81 MG TAB PO (09:00)
== END 2017-09-28 18:55 | disposition short-term general hospital (02) | DRG 235 ==
LOC: TEL 09-22 12:13 → MS2 09-27 19:32 → ICU 09-17 12:47 → MS2 09-26 22:33 → ICU 09-17 17:46 → MS4 14:18
PROC: 02100Z9 Bypass Coronary Artery, One Artery from Left Internal Mammary, Open Approach (ICD-10-PCS; principal; 2017-09-17 13:32)
PROC: 021109W Bypass Coronary Artery, Two Arteries from Aorta with Autologous Venous Tissue, Open Approach (ICD-10-PCS; 2017-09-17 13:32)
PROC: 06BP4ZZ Excision of Right Saphenous Vein, Percutaneous Endoscopic Approach (ICD-10-PCS; 2017-09-17 13:32)
PROC: 5A1935Z Respiratory Ventilation, Less than 24 Consecutive Hours (ICD-10-PCS; 2017-09-17 13:32)
PROC: 0BH17EZ Insertion of Endotracheal Airway into Trachea, Via Natural or Artificial Opening (ICD-10-PCS; 2017-09-17 13:32)
PROC: 5A1221Z Performance of Cardiac Output, Continuous (ICD-10-PCS; 2017-09-17 13:32)
PROC: 5A1223Z Performance of Cardiac Pacing, Continuous (ICD-10-PCS; 2017-09-17 13:32)
PROC: 05HM33Z Insertion of Infusion Device into Right Internal Jugular Vein, Percutaneous Approach (ICD-10-PCS; 2017-09-17 13:32)
DX: I25.119 Atherosclerotic heart disease of native coronary artery with unspecified angina pectoris (principal); R57.8 Other shock; I63.8 Other cerebral infarction; R65.20 Severe sepsis without septic shock; N17.0 Acute kidney failure with tubular necrosis; A41.9 Sepsis, unspecified organism; G93.41 Metabolic encephalopathy; N18.3 Chronic kidney disease, stage 3 (moderate); E87.0 Hyperosmolality and hypernatremia; J95.89 Other postprocedural complications and disorders of respiratory system, not elsewhere classified; E83.9 Disorder of mineral metabolism, unspecified; E11.22 Type 2 diabetes mellitus with diabetic chronic kidney disease; E66.01 Morbid (severe) obesity due to excess calories; E11.51 Type 2 diabetes mellitus with diabetic peripheral angiopathy without gangrene; E87.6 Hypokalemia; I13.10 Hypertensive heart and chronic kidney disease without heart failure, with stage 1 through stage 4 chronic kidney disease, or unspecified chronic kidney disease; I48.0 Paroxysmal atrial fibrillation; D64.9 Anemia, unspecified; R33.9 Retention of urine, unspecified; Z68.37 Body mass index [BMI] 37.0-37.9, adult; Z87.891 Personal history of nicotine dependence; Z91.013 Allergy to seafood
CPT/HCPCS: 36592; 36600; 70450; 70551; 71045; 76775; 80048; 80053; 80069; 80202; 81001; 81003; 82043; 82803; 82962; 83036; 83605; 83735; 84100; 84155; 84300; 85014; 85018; 85025; 85610; 85730; 86160; 86706; 86850; 86900; 86901; 86920; 87040; 87070; 87081; 87086; 87340; 89220; 90935; 92526; 92610; 93005; 93306; 93880; 94002; 94003; 94770; 97110; 97116; 97163; 97167; 97530; 97535; J1940

== ENCOUNTER 2017-09-28 18:54 | Inpatient (IN) | payer MEDICARE, OTHER ==
[2017-09-28] MEDS ORDERED: ONDANSETRON 4 MG INJ IV (20:52)
[2017-09-28] MEDS ORDERED: GLUCAGON 1 MG INJ IM (20:52)
[2017-09-28] MEDS ORDERED: ACETAMINOPHEN 325 MG TAB PO (20:52)
[2017-09-28] MEDS ORDERED: OXYCODONE/ACETAMINOPHEN (5/325) TAB PO ×2 (20:52)
[2017-09-28] MEDS ORDERED: DEXTROSE 50% 50 ML SYRINGE IV ×4 (20:52)
[2017-09-28] MEDS ORDERED: GLUCOSE GEL 15 GRAM TUBE PO ×2 (20:52)
[2017-09-28] MEDS ORDERED: GLUCOSE GEL 15 GRAM TUBE BUCCAL (20:52)
[2017-09-28] MEDS ORDERED: HEPARIN 1000 UNITS/ML 10 ML INJ CATHETER (20:52)
[2017-09-28] MEDS: Insulin NOVOLOG SS MODERATE Algorithm (SS with meals and bedtime) SC (21:00)
[2017-09-28] MEDS ORDERED: METOPROLOL 25 MG TAB PO (21:00)
[2017-09-28] MEDS: TAMSULOSIN (SR) 0.4 MG CAP PO (21:17)
[2017-09-28] MEDS: ATORVASTATIN 40 MG TAB PO (21:17)
[2017-09-28] MEDS: HEPARIN 5,000 UNIT/0.5 ML VIAL SC (21:19)
[2017-09-28] MEDS: INSULIN GLARGINE [LANtus] 3 ML PEN SC (21:20)
[2017-09-28] MEDS: METOPROLOL 50 MG TAB PO (21:26)
[2017-09-28 22:58] LABS: ADD UMIC YES; UR ASCORBIC ACID NEGATIVE (NEGATIVE); UR BACTERIA FEW /HPF (NONE SEEN); UR BILIRUBIN (Dip) NEGATIVE (NEGATIVE); UR BLOOD (Dip) 2+ mg/dL (NEGATIVE); UR CLARITY SLIGHTLY CLOUDY (CLEAR); UR COLOR YELLOW (YELLOW); UR GLUCOSE (Dip) NEGATIVE (NEGATIVE); UR KETONES (Dip) NEGATIVE (NEGATIVE); UR LEUKOCYTE ESTERASE (Dip) NEGATIVE Leu/ul (NEGATIVE); UR NITRITE (Dip) NEGATIVE (NEGATIVE); UR RBC 0 /HPF (0-5); UR SPECIFIC GRAVITY (Dip) 1.012 (1.003-1.030); UR TOTAL PROTEIN (Dip) NEGATIVE (NEGATIVE); UR UROBILINOGEN (Dip) NEGATIVE (NEGATIVE); UR WBC 1 /HPF (0-5)
[2017-09-29] MEDS: ACCU-CHEK XX (02:00)
[2017-09-29 06:38] LABS: ADD MAN DIFF? NO
[2017-09-29 06:40] LABS: ABNORMAL IP MESSAGE 1; BASOPHILS % 0.2 % (0.0-2.0); EOSINOPHILS # 0.3 10^3/ul (0.0-0.5); EOSINOPHILS % 2.4 % (0.0-7.0); HEMOGLOBIN 7.7 g/dl (14.0-18.0); LYMPHOCYTES # 0.6 10^3/ul (0.8-2.9); LYMPHOCYTES % 5.5 % (15.0-51.0); MEAN CORPUSCULAR HEMOGLOBIN 32.6 pg (29.0-33.0); MEAN CORPUSCULAR HGB CONC 32.1 g/dl (32.0-37.0); MEAN CORPUSCULAR VOLUME 101.7 fl (82.0-101.0); MEAN PLATELET VOLUME 12.6 fl (7.4-10.4); MONOCYTE # 0.9 10^3/ul (0.3-0.9); MONOCYTES % 8.8 % (0.0-11.0); NEUTROPHIL # 7.4 10^3/ul (1.6-7.5); NEUTROPHILS % 70.3 % (39.0-77.0); NUCLEATED RED BLOOD CELLS% 0.2 /100WBC (0.0-0.0); PLATELET COUNT 154 10^3/UL (140-415); POSITIVE DIFF @See below; RED BLOOD COUNT 2.36 10^6/ul (4.70-6.10); RED CELL DISTRIBUTION WIDTH 15.8 % (11.5-14.5)
[2017-09-29 06:40] LABS: WHITE BLOOD COUNT 10.5 10^3/ul (4.8-10.8)
[2017-09-29 07:03] LABS: ALANINE AMINOTRANSFERASE 202 IU/L (13-69); ALBUMIN 3.1 g/dl (3.3-4.9); ALBUMIN/GLOBULIN RATIO 1.03; ALKALINE PHOSPHATASE 114 IU/L (42-121); ANION GAP 13 (8-16); ASPARTATE AMINO TRANSFERASE 104 IU/L (15-46); BILIRUBIN,INDIRECT 0.6 mg/dl (0-1.1); BILIRUBIN,TOTAL 0.6 mg/dl (0.2-1.3); BLOOD UREA NITROGEN 75 mg/dl (7-20); CALCIUM 7.5 mg/dl (8.4-10.2); CARBON DIOXIDE 31 mmol/L (21-31); CHLORIDE 105 mmol/L (97-110); CREATININE 2.44 mg/dl (0.61-1.24); GLUCOSE 111 mg/dl (70-220); POTASSIUM 4.3 mmol/L (3.5-5.1); SODIUM 145 mmol/L (135-144); TOTAL PROTEIN 6.1 g/dl (6.1-8.1)
[2017-09-29] MEDS: Insulin NOVOLOG SS MODERATE Algorithm (SS with meals and bedtime) SC ×4 (07:35→21:00)
[2017-09-29] MEDS: ASPIRIN 81 MG TAB PO (10:23)
[2017-09-29] MEDS: ALLOPURINOL 300 MG TAB PO (10:23)
[2017-09-29] MEDS: AMIODARONE 200 MG TAB NGT (10:24)
[2017-09-29] MEDS: CLOPIDOGREL 75 MG TAB PO (10:25)
[2017-09-29] MEDS: METOPROLOL 50 MG TAB PO ×2 (10:25→21:22)
[2017-09-29] MEDS: HEPARIN 5,000 UNIT/0.5 ML VIAL SC ×2 (10:26→21:35)
[2017-09-29 11:28] LABS: FOLATE 13.2 ng/ml (2.8-20.0)
[2017-09-29] MEDS: CEFEPIME 1GM/50 ML IVPB ×2 (14:40→17:12)
[2017-09-29 18:04] LABS: IRON 75 ug/dl (35-150)
[2017-09-29 18:30] LABS: % IRON SATURATION 24 % SAT (22-52); TOTAL IRON BINDING CAPACITY 317 ug/dl (241-421)
[2017-09-29] MEDS: ATORVASTATIN 40 MG TAB PO (21:18)
[2017-09-29] MEDS: TAMSULOSIN (SR) 0.4 MG CAP PO (21:18)
[2017-09-30] MEDS: ACCU-CHEK XX (02:00)
[2017-09-30] MEDS: Insulin NOVOLOG SS MODERATE Algorithm (SS with meals and bedtime) SC ×4 (07:35→21:00)
[2017-09-30] MEDS ORDERED: EPOETIN 10000 UNITS/1 ML INJ (ESRD) SC (08:30)
[2017-09-30 08:57] LABS: ADD MAN DIFF? NO
[2017-09-30 09:06] LABS: WHITE BLOOD COUNT 9.3 10^3/ul (4.8-10.8)
[2017-09-30 09:06] LABS: ABNORMAL IP MESSAGE 1; BASOPHILS % 0.2 % (0.0-2.0); EOSINOPHILS # 0.3 10^3/ul (0.0-0.5); EOSINOPHILS % 2.7 % (0.0-7.0); HEMOGLOBIN 7.2 g/dl (14.0-18.0); LYMPHOCYTES # 0.8 10^3/ul (0.8-2.9); LYMPHOCYTES % 8.1 % (15.0-51.0); MEAN CORPUSCULAR HEMOGLOBIN 33.3 pg (29.0-33.0); MEAN CORPUSCULAR HGB CONC 32.7 g/dl (32.0-37.0); MEAN CORPUSCULAR VOLUME 101.9 fl (82.0-101.0); MONOCYTE # 0.8 10^3/ul (0.3-0.9); MONOCYTES % 8.9 % (0.0-11.0); NEUTROPHIL # 6.6 10^3/ul (1.6-7.5); NEUTROPHILS % 70.6 % (39.0-77.0); PLATELET COUNT 153 10^3/UL (140-415); POSITIVE DIFF @See below; RED BLOOD COUNT 2.16 10^6/ul (4.70-6.10); RED CELL DISTRIBUTION WIDTH 15.6 % (11.5-14.5)
[2017-09-30 09:54] LABS: ANION GAP 15 (8-16); BLOOD UREA NITROGEN 68 mg/dl (7-20); CALCIUM 7.3 mg/dl (8.4-10.2); CARBON DIOXIDE 28 mmol/L (21-31); CHLORIDE 106 mmol/L (97-110); CREATININE 2.25 mg/dl (0.61-1.24); GLUCOSE 123 mg/dl (70-220); MAGNESIUM 1.7 mg/dl (1.7-2.5); PHOSPHORUS 3.6 mg/dl (2.5-4.9); POTASSIUM 4.5 mmol/L (3.5-5.1); SODIUM 144 mmol/L (135-144)
[2017-09-30] MEDS: ASPIRIN 81 MG TAB PO (09:59)
[2017-09-30] MEDS: ALLOPURINOL 300 MG TAB PO (09:59)
[2017-09-30] MEDS: METOPROLOL 50 MG TAB PO ×2 (09:59→21:30)
[2017-09-30] MEDS: CLOPIDOGREL 75 MG TAB PO (09:59)
[2017-09-30] MEDS: AMIODARONE 200 MG TAB NGT (10:01)
[2017-09-30] MEDS: EPOETIN 10000 UNITS/1 ML INJ (ESRD) SC (10:05)
[2017-09-30] MEDS: MAGNESIUM SULFATE 2 GM/50 ML 50 ML IVPB (12:40)
[2017-09-30] MEDS: CEFEPIME 1GM/50 ML IVPB (15:24)
[2017-09-30] MEDS: TAMSULOSIN (SR) 0.4 MG CAP PO (21:26)
[2017-09-30] MEDS: ATORVASTATIN 40 MG TAB PO (21:26)
[2017-09-30] MEDS: INSULIN GLARGINE [LANtus] 3 ML PEN SC (21:34)
[2017-10-01] MEDS: ACCU-CHEK XX (02:00)
[2017-10-01] MEDS: Insulin NOVOLOG SS MODERATE Algorithm (SS with meals and bedtime) SC ×4 (07:35→20:49)
[2017-10-01 07:55] LABS: ADD MAN DIFF? NO
[2017-10-01 08:06] LABS: ABNORMAL IP MESSAGE 1; BASOPHILS % 0.4 % (0.0-2.0); EOSINOPHILS # 0.2 10^3/ul (0.0-0.5); EOSINOPHILS % 1.9 % (0.0-7.0); HEMATOCRIT 23.6 % (42.0-52.0); HEMOGLOBIN 7.7 g/dl (14.0-18.0); LYMPHOCYTES # 0.7 10^3/ul (0.8-2.9); LYMPHOCYTES % 7.9 % (15.0-51.0); MEAN CORPUSCULAR HEMOGLOBIN 33.5 pg (29.0-33.0); MEAN CORPUSCULAR HGB CONC 32.6 g/dl (32.0-37.0); MEAN CORPUSCULAR VOLUME 102.6 fl (82.0-101.0); MEAN PLATELET VOLUME 12.9 fl (7.4-10.4); MONOCYTE # 0.8 10^3/ul (0.3-0.9); MONOCYTES % 8.3 % (0.0-11.0); NEUTROPHIL # 6.8 10^3/ul (1.6-7.5); NEUTROPHILS % 74.7 % (39.0-77.0); PLATELET COUNT 172 10^3/UL (140-415); POSITIVE DIFF @See below; RED CELL DISTRIBUTION WIDTH 15.6 % (11.5-14.5)
[2017-10-01 08:27] LABS: ANION GAP 16 (8-16); BLOOD UREA NITROGEN 58 mg/dl (7-20); CALCIUM 7.6 mg/dl (8.4-10.2); CARBON DIOXIDE 27 mmol/L (21-31); CHLORIDE 108 mmol/L (97-110); CREATININE 2.09 mg/dl (0.61-1.24); GLUCOSE 101 mg/dl (70-220); POTASSIUM 4.8 mmol/L (3.5-5.1); SODIUM 146 mmol/L (135-144)
[2017-10-01] MEDS: CLOPIDOGREL 75 MG TAB PO (08:44)
[2017-10-01] MEDS: METOPROLOL 50 MG TAB PO ×2 (08:45→20:44)
[2017-10-01] MEDS: AMIODARONE 200 MG TAB NGT (08:45)
[2017-10-01] MEDS: ASPIRIN 81 MG TAB PO (08:45)
[2017-10-01] MEDS: ALLOPURINOL 300 MG TAB PO (08:46)
[2017-10-01] MEDS: CEFEPIME 1GM/50 ML IVPB (14:53)
[2017-10-01] MEDS: ATORVASTATIN 40 MG TAB PO (20:43)
[2017-10-01] MEDS: TAMSULOSIN (SR) 0.4 MG CAP PO (20:43)
[2017-10-01] MEDS: INSULIN GLARGINE [LANtus] 3 ML PEN SC (20:54)
[2017-10-02] MEDS: ACCU-CHEK XX (02:00)
[2017-10-02] MEDS: Insulin NOVOLOG SS MODERATE Algorithm (SS with meals and bedtime) SC ×4 (07:35→20:44)
[2017-10-02] MEDS: ALLOPURINOL 300 MG TAB PO (11:06)
[2017-10-02] MEDS: AMIODARONE 200 MG TAB NGT (11:06)
[2017-10-02] MEDS: ASPIRIN 81 MG TAB PO (11:06)
[2017-10-02] MEDS: CLOPIDOGREL 75 MG TAB PO (11:06)
[2017-10-02] MEDS: METOPROLOL 50 MG TAB PO ×2 (13:41→20:44)
[2017-10-02] MEDS: EPOETIN 10000 UNITS/1 ML INJ (ESRD) SC (15:23)
[2017-10-02] MEDS: CEFEPIME 1GM/50 ML IVPB (15:23)
[2017-10-02] MEDS: TAMSULOSIN (SR) 0.4 MG CAP PO (20:43)
[2017-10-02] MEDS: ATORVASTATIN 40 MG TAB PO (20:43)
[2017-10-02] MEDS: INSULIN GLARGINE [LANtus] 3 ML PEN SC (20:49)
[2017-10-03] MEDS: ACCU-CHEK XX (02:00)
[2017-10-03] MEDS: Insulin NOVOLOG SS MODERATE Algorithm (SS with meals and bedtime) SC ×4 (07:35→21:00)
[2017-10-03 07:49] LABS: ANION GAP 17 (8-16); BLOOD UREA NITROGEN 42 mg/dl (7-20); CALCIUM 7.5 mg/dl (8.4-10.2); CARBON DIOXIDE 26 mmol/L (21-31); CHLORIDE 108 mmol/L (97-110); CREATININE 1.97 mg/dl (0.61-1.24); GLUCOSE 106 mg/dl (70-220); MAGNESIUM 1.6 mg/dl (1.7-2.5); PHOSPHORUS 3.9 mg/dl (2.5-4.9); POTASSIUM 4.3 mmol/L (3.5-5.1); SODIUM 147 mmol/L (135-144)
[2017-10-03] MEDS: ALLOPURINOL 300 MG TAB PO (08:16)
[2017-10-03] MEDS: ASPIRIN 81 MG TAB PO (08:16)
[2017-10-03] MEDS: METOPROLOL 50 MG TAB PO ×2 (08:17→20:56)
[2017-10-03] MEDS: CLOPIDOGREL 75 MG TAB PO (08:17)
[2017-10-03] MEDS: AMIODARONE 200 MG TAB NGT (08:17)
[2017-10-03] MEDS: TAMSULOSIN (SR) 0.4 MG CAP PO (20:55)
[2017-10-03] MEDS: ATORVASTATIN 40 MG TAB PO (20:55)
[2017-10-03] MEDS: L ACIDOPHIL/B LACTIS/B LONGUM CAPSULE PO (20:55)
[2017-10-03] MEDS: INSULIN GLARGINE [LANtus] 3 ML PEN SC (21:02)
[2017-10-04] MEDS: ACCU-CHEK XX (02:00)
[2017-10-04] MEDS: Insulin NOVOLOG SS MODERATE Algorithm (SS with meals and bedtime) SC ×4 (07:35→21:00)
[2017-10-04 07:47] LABS: ADD MAN DIFF? NO
[2017-10-04 07:51] LABS: BASOPHILS % 0.5 % (0.0-2.0); EOSINOPHILS # 0.2 10^3/ul (0.0-0.5); EOSINOPHILS % 2.8 % (0.0-7.0); HEMATOCRIT 22.5 % (42.0-52.0); HEMOGLOBIN 7.3 g/dl (14.0-18.0); LYMPHOCYTES # 0.7 10^3/ul (0.8-2.9); LYMPHOCYTES % 10.7 % (15.0-51.0); MEAN CORPUSCULAR HEMOGLOBIN 33.6 pg (29.0-33.0); MEAN CORPUSCULAR HGB CONC 32.4 g/dl (32.0-37.0); MEAN CORPUSCULAR VOLUME 103.7 fl (82.0-101.0); MEAN PLATELET VOLUME 12.4 fl (7.4-10.4); MONOCYTE # 0.7 10^3/ul (0.3-0.9); MONOCYTES % 10.4 % (0.0-11.0); NEUTROPHIL # 4.6 10^3/ul (1.6-7.5); NEUTROPHILS % 71.6 % (39.0-77.0); PLATELET COUNT 177 10^3/UL (140-415); RED BLOOD COUNT 2.17 10^6/ul (4.70-6.10); RED CELL DISTRIBUTION WIDTH 16.3 % (11.5-14.5)
[2017-10-04 07:51] LABS: WHITE BLOOD COUNT 6.4 10^3/ul (4.8-10.8)
[2017-10-04 08:16] LABS: ANION GAP 16 (8-16); BLOOD UREA NITROGEN 37 mg/dl (7-20); CALCIUM 7.4 mg/dl (8.4-10.2); CARBON DIOXIDE 26 mmol/L (21-31); CHLORIDE 109 mmol/L (97-110); CREATININE 1.88 mg/dl (0.61-1.24); GLUCOSE 88 mg/dl (70-220); POTASSIUM 4.6 mmol/L (3.5-5.1); SODIUM 146 mmol/L (135-144)
[2017-10-04] MEDS: CLOPIDOGREL 75 MG TAB PO (08:26)
[2017-10-04] MEDS: L ACIDOPHIL/B LACTIS/B LONGUM CAPSULE PO ×2 (08:26→21:12)
[2017-10-04] MEDS: ASPIRIN 81 MG TAB PO (08:26)
[2017-10-04] MEDS: AMIODARONE 200 MG TAB NGT (08:26)
[2017-10-04] MEDS: METOPROLOL 50 MG TAB PO ×2 (08:26→21:11)
[2017-10-04] MEDS: ALLOPURINOL 300 MG TAB PO (08:26)
[2017-10-04] MEDS: EPOETIN 10000 UNITS/1 ML INJ (ESRD) SC (12:05)
[2017-10-04] MEDS: INSULIN GLARGINE [LANtus] 3 ML PEN SC (21:10)
[2017-10-04] MEDS: TAMSULOSIN (SR) 0.4 MG CAP PO (21:11)
[2017-10-04] MEDS: ATORVASTATIN 40 MG TAB PO (21:11)
[2017-10-05] MEDS: ACCU-CHEK XX (02:00)
[2017-10-05 07:10] LABS: ADD MAN DIFF? NO
[2017-10-05 07:23] LABS: BASOPHIL # 0.1 10^3/ul (0.0-0.1); BASOPHILS % 0.8 % (0.0-2.0); EOSINOPHILS # 0.1 10^3/ul (0.0-0.5); EOSINOPHILS % 1.8 % (0.0-7.0); HEMATOCRIT 23.4 % (42.0-52.0); HEMOGLOBIN 7.6 g/dl (14.0-18.0); LYMPHOCYTES # 0.6 10^3/ul (0.8-2.9); LYMPHOCYTES % 9.6 % (15.0-51.0); MEAN CORPUSCULAR HEMOGLOBIN 34.2 pg (29.0-33.0); MEAN CORPUSCULAR HGB CONC 32.5 g/dl (32.0-37.0); MEAN CORPUSCULAR VOLUME 105.4 fl (82.0-101.0); MEAN PLATELET VOLUME 12.3 fl (7.4-10.4); MONOCYTE # 0.8 10^3/ul (0.3-0.9); MONOCYTES % 11.4 % (0.0-11.0); NEUTROPHIL # 4.8 10^3/ul (1.6-7.5); NEUTROPHILS % 73.2 % (39.0-77.0); PLATELET COUNT 180 10^3/UL (140-415); RED BLOOD COUNT 2.22 10^6/ul (4.70-6.10); RED CELL DISTRIBUTION WIDTH 16.5 % (11.5-14.5)
[2017-10-05 07:23] LABS: WHITE BLOOD COUNT 6.6 10^3/ul (4.8-10.8)
[2017-10-05] MEDS: Insulin NOVOLOG SS MODERATE Algorithm (SS with meals and bedtime) SC ×4 (07:35→21:00)
[2017-10-05 07:51] LABS: ANION GAP 15 (8-16); BLOOD UREA NITROGEN 32 mg/dl (7-20); CALCIUM 7.5 mg/dl (8.4-10.2); CARBON DIOXIDE 28 mmol/L (21-31); CHLORIDE 109 mmol/L (97-110); CREATININE 1.95 mg/dl (0.61-1.24); GLUCOSE 101 mg/dl (70-220); MAGNESIUM 1.3 mg/dl (1.7-2.5); PHOSPHORUS 3.6 mg/dl (2.5-4.9); POTASSIUM 5.2 mmol/L (3.5-5.1); SODIUM 147 mmol/L (135-144)
[2017-10-05] MEDS: ASPIRIN 81 MG TAB PO (08:11)
[2017-10-05] MEDS: ALLOPURINOL 100 MG TAB PO (08:11)
[2017-10-05] MEDS: CLOPIDOGREL 75 MG TAB PO (08:11)
[2017-10-05] MEDS: L ACIDOPHIL/B LACTIS/B LONGUM CAPSULE PO ×2 (08:12→21:03)
[2017-10-05] MEDS: AMIODARONE 200 MG TAB NGT (08:12)
[2017-10-05] MEDS: METOPROLOL 50 MG TAB PO (08:12)
[2017-10-05] MEDS: TAMSULOSIN (SR) 0.4 MG CAP PO (20:57)
[2017-10-05] MEDS: ATORVASTATIN 40 MG TAB PO (20:57)
[2017-10-05] MEDS: METOPROLOL 25 MG TAB PO (21:03)
[2017-10-05] MEDS: INSULIN GLARGINE [LANtus] 3 ML PEN SC (21:10)
[2017-10-06] MEDS: ACCU-CHEK XX (02:00)
[2017-10-06] MEDS: Insulin NOVOLOG SS MODERATE Algorithm (SS with meals and bedtime) SC ×4 (07:35→21:00)
[2017-10-06 08:07] LABS: ANION GAP 14 (8-16); BLOOD UREA NITROGEN 29 mg/dl (7-20); CALCIUM 7.7 mg/dl (8.4-10.2); CARBON DIOXIDE 27 mmol/L (21-31); CHLORIDE 110 mmol/L (97-110); CREATININE 1.86 mg/dl (0.61-1.24); GLUCOSE 87 mg/dl (70-220); MAGNESIUM 1.4 mg/dl (1.7-2.5); POTASSIUM 4.2 mmol/L (3.5-5.1); SODIUM 147 mmol/L (135-144)
[2017-10-06] MEDS: L ACIDOPHIL/B LACTIS/B LONGUM CAPSULE PO ×2 (08:57→20:36)
[2017-10-06] MEDS: CLOPIDOGREL 75 MG TAB PO (08:57)
[2017-10-06] MEDS: ALLOPURINOL 100 MG TAB PO (08:58)
[2017-10-06] MEDS: METOPROLOL 25 MG TAB PO ×2 (08:58→20:37)
[2017-10-06] MEDS: ASPIRIN 81 MG TAB PO (08:58)
[2017-10-06] MEDS: AMIODARONE 200 MG TAB NGT (08:59)
[2017-10-06] MEDS: MAGNESIUM SULFATE 3 GM in DEXTROSE 5% 100 ML IVPB (13:50)
[2017-10-06 16:04] LABS: OCCULT BLOOD STOOL NEGATIVE (NEGATIVE)
[2017-10-06] MEDS: EPOETIN ALFA (NESRD) 3,000 UNITS/ML VIAL SC (17:30)
[2017-10-06] MEDS: TAMSULOSIN (SR) 0.4 MG CAP PO (20:36)
[2017-10-06] MEDS: ATORVASTATIN 40 MG TAB PO (20:36)
[2017-10-06] MEDS: INSULIN GLARGINE [LANtus] 3 ML PEN SC (20:42)
[2017-10-07] MEDS: ACCU-CHEK XX (02:00)
[2017-10-07 06:43] LABS: ADD MAN DIFF? NO
[2017-10-07 06:48] LABS: WHITE BLOOD COUNT 4.3 10^3/ul (4.8-10.8)
[2017-10-07 06:48] LABS: ABNORMAL IP MESSAGE 1; BASOPHILS % 0.7 % (0.0-2.0); EOSINOPHILS # 0.1 10^3/ul (0.0-0.5); EOSINOPHILS % 2.3 % (0.0-7.0); HEMATOCRIT 25.4 % (42.0-52.0); HEMOGLOBIN 8.1 g/dl (14.0-18.0); LYMPHOCYTES # 0.5 10^3/ul (0.8-2.9); LYMPHOCYTES % 12.3 % (15.0-51.0); MEAN CORPUSCULAR HEMOGLOBIN 33.8 pg (29.0-33.0); MEAN CORPUSCULAR HGB CONC 31.9 g/dl (32.0-37.0); MEAN CORPUSCULAR VOLUME 105.8 fl (82.0-101.0); MONOCYTE # 0.5 10^3/ul (0.3-0.9); MONOCYTES % 12.3 % (0.0-11.0); NEUTROPHIL # 3.1 10^3/ul (1.6-7.5); NEUTROPHILS % 70.8 % (39.0-77.0); PLATELET COUNT 171 10^3/UL (140-415); POSITIVE DIFF @See below
[2017-10-07 07:11] LABS: ANION GAP 17 (8-16); BLOOD UREA NITROGEN 27 mg/dl (7-20); CALCIUM 7.5 mg/dl (8.4-10.2); CARBON DIOXIDE 27 mmol/L (21-31); CHLORIDE 107 mmol/L (97-110); CREATININE 1.72 mg/dl (0.61-1.24); GLUCOSE 89 mg/dl (70-220); MAGNESIUM 1.9 mg/dl (1.7-2.5); PHOSPHORUS 4.1 mg/dl (2.5-4.9); POTASSIUM 4.5 mmol/L (3.5-5.1); SODIUM 146 mmol/L (135-144)
[2017-10-07] MEDS: Insulin NOVOLOG SS MODERATE Algorithm (SS with meals and bedtime) SC ×4 (07:35→20:39)
[2017-10-07] MEDS: ASPIRIN 81 MG TAB PO (09:52)
[2017-10-07] MEDS: CLOPIDOGREL 75 MG TAB PO (09:52)
[2017-10-07] MEDS: AMIODARONE 200 MG TAB NGT (09:53)
[2017-10-07] MEDS: L ACIDOPHIL/B LACTIS/B LONGUM CAPSULE PO ×2 (09:53→20:35)
[2017-10-07] MEDS: ALLOPURINOL 100 MG TAB PO (09:54)
[2017-10-07] MEDS: METOPROLOL 25 MG TAB PO ×2 (09:55→20:37)
[2017-10-07] MEDS: ATORVASTATIN 40 MG TAB PO (20:35)
[2017-10-07] MEDS: TAMSULOSIN (SR) 0.4 MG CAP PO (20:35)
[2017-10-07] MEDS: INSULIN GLARGINE [LANtus] 3 ML PEN SC (20:45)
[2017-10-08] MEDS: ACCU-CHEK XX (02:00)
[2017-10-08] MEDS: Insulin NOVOLOG SS MODERATE Algorithm (SS with meals and bedtime) SC ×4 (07:35→21:00)
[2017-10-08] MEDS: CLOPIDOGREL 75 MG TAB PO (08:12)
[2017-10-08] MEDS: L ACIDOPHIL/B LACTIS/B LONGUM CAPSULE PO ×2 (08:12→21:45)
[2017-10-08] MEDS: ALLOPURINOL 100 MG TAB PO (08:12)
[2017-10-08] MEDS: ASPIRIN 81 MG TAB PO (08:13)
[2017-10-08] MEDS: AMIODARONE 200 MG TAB NGT (08:14)
[2017-10-08] MEDS: METOPROLOL 25 MG TAB PO ×2 (08:14→21:43)
[2017-10-08] MEDS: MAGNESIUM HYDROXIDE 30ML CUP PO (16:07)
[2017-10-08] MEDS: EPOETIN ALFA (NESRD) 3,000 UNITS/ML VIAL SC (17:30)
[2017-10-08] MEDS: ATORVASTATIN 40 MG TAB PO (21:34)
[2017-10-08] MEDS: TAMSULOSIN (SR) 0.4 MG CAP PO (21:34)
[2017-10-08] MEDS: INSULIN GLARGINE [LANtus] 3 ML PEN SC (21:36)
[2017-10-09] MEDS: ACCU-CHEK XX (02:00)
[2017-10-09] MEDS: Insulin NOVOLOG SS MODERATE Algorithm (SS with meals and bedtime) SC ×4 (07:35→20:24)
[2017-10-09] MEDS: AMIODARONE 200 MG TAB NGT (08:12)
[2017-10-09] MEDS: L ACIDOPHIL/B LACTIS/B LONGUM CAPSULE PO ×2 (08:13→20:25)
[2017-10-09] MEDS: ASPIRIN 81 MG TAB PO (08:13)
[2017-10-09] MEDS: CLOPIDOGREL 75 MG TAB PO (08:14)
[2017-10-09] MEDS: ALLOPURINOL 100 MG TAB PO (08:14)
[2017-10-09] MEDS: METOPROLOL 25 MG TAB PO ×2 (08:14→20:24)
[2017-10-09] MEDS: ATORVASTATIN 40 MG TAB PO (20:24)
[2017-10-09] MEDS: TAMSULOSIN (SR) 0.4 MG CAP PO (20:24)
[2017-10-09] MEDS: INSULIN GLARGINE [LANtus] 3 ML PEN SC (20:31)
[2017-10-10] MEDS: ACCU-CHEK XX (02:00)
[2017-10-10 06:36] LABS: HEMATOCRIT 25.8 % (42.0-52.0)
[2017-10-10 06:36] LABS: HEMOGLOBIN 8.1 g/dl (14.0-18.0)
[2017-10-10 07:09] LABS: ANION GAP 12 (8-16); BLOOD UREA NITROGEN 23 mg/dl (7-20); CALCIUM 7.6 mg/dl (8.4-10.2); CARBON DIOXIDE 25 mmol/L (21-31); CHLORIDE 107 mmol/L (97-110); CREATININE 1.64 mg/dl (0.61-1.24); GLUCOSE 77 mg/dl (70-220); MAGNESIUM 1.5 mg/dl (1.7-2.5); PHOSPHORUS 3.8 mg/dl (2.5-4.9); POTASSIUM 4.3 mmol/L (3.5-5.1); SODIUM 140 mmol/L (135-144)
[2017-10-10] MEDS: Insulin NOVOLOG SS MODERATE Algorithm (SS with meals and bedtime) SC ×4 (07:35→21:00)
[2017-10-10] MEDS: L ACIDOPHIL/B LACTIS/B LONGUM CAPSULE PO ×2 (09:12→21:46)
[2017-10-10] MEDS: METOPROLOL 25 MG TAB PO ×2 (09:13→21:47)
[2017-10-10] MEDS: CLOPIDOGREL 75 MG TAB PO (09:13)
[2017-10-10] MEDS: AMIODARONE 200 MG TAB NGT (09:13)
[2017-10-10] MEDS: ASPIRIN 81 MG TAB PO (09:13)
[2017-10-10] MEDS: ALLOPURINOL 100 MG TAB PO (09:13)
[2017-10-10] MEDS ORDERED: LACTATED RINGER'S 500 ML IV (11:00)
[2017-10-10] MEDS: LACTATED RINGER'S 500 ML IV (11:42)
[2017-10-10] MEDS: MAGNESIUM SULFATE 2 GM/50 ML 50 ML IVPB (12:55)
[2017-10-10] MEDS: EPOETIN ALFA (NESRD) 3,000 UNITS/ML VIAL SC (18:38)
[2017-10-10] MEDS: TAMSULOSIN (SR) 0.4 MG CAP PO (21:46)
[2017-10-10] MEDS: ATORVASTATIN 40 MG TAB PO (21:47)
[2017-10-10] MEDS: ZOLPIDEM 5 MG TAB PO (21:47)
[2017-10-10] MEDS: INSULIN GLARGINE [LANtus] 3 ML PEN SC (21:49)
[2017-10-11] MEDS: ACCU-CHEK XX (01:19)
[2017-10-11 06:49] LABS: ANION GAP 15 (8-16); BLOOD UREA NITROGEN 22 mg/dl (7-20); CALCIUM 7.8 mg/dl (8.4-10.2); CARBON DIOXIDE 27 mmol/L (21-31); CHLORIDE 106 mmol/L (97-110); CREATININE 1.61 mg/dl (0.61-1.24); GLUCOSE 88 mg/dl (70-220); POTASSIUM 4.3 mmol/L (3.5-5.1); SODIUM 144 mmol/L (135-144)
[2017-10-11] MEDS: Insulin NOVOLOG SS MODERATE Algorithm (SS with meals and bedtime) SC ×4 (07:35→20:32)
[2017-10-11] MEDS: ASPIRIN 81 MG TAB PO (09:02)
[2017-10-11] MEDS: AMIODARONE 200 MG TAB NGT (09:03)
[2017-10-11] MEDS: L ACIDOPHIL/B LACTIS/B LONGUM CAPSULE PO ×2 (09:04→20:23)
[2017-10-11] MEDS: ALLOPURINOL 100 MG TAB PO (09:04)
[2017-10-11] MEDS: METOPROLOL 25 MG TAB PO ×2 (09:04→20:20)
[2017-10-11] MEDS: CLOPIDOGREL 75 MG TAB PO (09:04)
[2017-10-11] MEDS: DOXAZOSIN 1 MG TAB PO (12:00)
[2017-10-11] MEDS: ZOLPIDEM 5 MG TAB PO (20:16)
[2017-10-11] MEDS: ATORVASTATIN 40 MG TAB PO (20:16)
[2017-10-11] MEDS: INSULIN GLARGINE [LANtus] 3 ML PEN SC (20:31)
[2017-10-11] MEDS: DOXAZOSIN 4 MG TAB PO (20:57)
[2017-10-12] MEDS: ACCU-CHEK XX (02:00)
[2017-10-12] MEDS: hydrALAzine 20 MG INJ IV (03:43)
[2017-10-12] MEDS: Insulin NOVOLOG SS MODERATE Algorithm (SS with meals and bedtime) SC ×4 (07:35→20:19)
[2017-10-12] MEDS: ASPIRIN 81 MG TAB PO (09:07)
[2017-10-12] MEDS: AMIODARONE 200 MG TAB NGT (09:07)
[2017-10-12] MEDS: CLOPIDOGREL 75 MG TAB PO (09:09)
[2017-10-12] MEDS: METOPROLOL 25 MG TAB PO ×2 (09:09→20:18)
[2017-10-12] MEDS: L ACIDOPHIL/B LACTIS/B LONGUM CAPSULE PO ×2 (09:10→20:10)
[2017-10-12] MEDS: ALLOPURINOL 100 MG TAB PO (09:10)
[2017-10-12] MEDS ORDERED: BISACODYL (EC) 5 MG TAB PO (16:00)
[2017-10-12] MEDS ORDERED: DOCUSATE SODIUM 100 MG CAP PO (16:00)
[2017-10-12] MEDS: MAGNESIUM HYDROXIDE 30ML CUP PO (20:09)
[2017-10-12] MEDS: ATORVASTATIN 40 MG TAB PO (20:10)
[2017-10-12] MEDS: DOXAZOSIN 4 MG TAB PO (20:11)
[2017-10-12] MEDS: ZOLPIDEM 5 MG TAB PO (20:11)
[2017-10-12] MEDS: INSULIN GLARGINE [LANtus] 3 ML PEN SC (20:20)
[2017-10-12] MEDS: POLYETHYLENE GLYCOL 17 GM PACKET PO ×2 (20:59→21:00)
[2017-10-13] MEDS: ACCU-CHEK XX (02:00)
[2017-10-13 06:41] LABS: ADD MAN DIFF? NO
[2017-10-13 06:45] LABS: ABNORMAL IP MESSAGE 1; BASOPHILS % 1.1 % (0.0-2.0); EOSINOPHILS # 0.2 10^3/ul (0.0-0.5); HEMATOCRIT 27.4 % (42.0-52.0); HEMOGLOBIN 8.7 g/dl (14.0-18.0); LYMPHOCYTES # 0.5 10^3/ul (0.8-2.9); LYMPHOCYTES % 18.7 % (15.0-51.0); MEAN CORPUSCULAR HEMOGLOBIN 32.1 pg (29.0-33.0); MEAN CORPUSCULAR HGB CONC 31.8 g/dl (32.0-37.0); MEAN CORPUSCULAR VOLUME 101.1 fl (82.0-101.0); MEAN PLATELET VOLUME 11.6 fl (7.4-10.4); MONOCYTE # 0.4 10^3/ul (0.3-0.9); NEUTROPHIL # 1.6 10^3/ul (1.6-7.5); NEUTROPHILS % 58.5 % (39.0-77.0); PLATELET COUNT 143 10^3/UL (140-415); POSITIVE DIFF @See below; RED BLOOD COUNT 2.71 10^6/ul (4.70-6.10); RED CELL DISTRIBUTION WIDTH 15.4 % (11.5-14.5)
[2017-10-13 06:45] LABS: WHITE BLOOD COUNT 2.7 10^3/ul (4.8-10.8)
[2017-10-13 07:08] LABS: ANION GAP 16 (8-16); BLOOD UREA NITROGEN 23 mg/dl (7-20); CALCIUM 7.7 mg/dl (8.4-10.2); CARBON DIOXIDE 26 mmol/L (21-31); CHLORIDE 107 mmol/L (97-110); CREATININE 1.69 mg/dl (0.61-1.24); GLUCOSE 89 mg/dl (70-220); POTASSIUM 4.3 mmol/L (3.5-5.1); SODIUM 145 mmol/L (135-144)
[2017-10-13 07:10] LABS: MAGNESIUM 1.7 mg/dl (1.7-2.5)
[2017-10-13] MEDS: Insulin NOVOLOG SS MODERATE Algorithm (SS with meals and bedtime) SC ×4 (07:35→20:33)
[2017-10-13] MEDS: ASPIRIN 81 MG TAB PO (08:22)
[2017-10-13] MEDS: POLYETHYLENE GLYCOL 17 GM PACKET PO ×2 (08:22→20:33)
[2017-10-13] MEDS: L ACIDOPHIL/B LACTIS/B LONGUM CAPSULE PO ×2 (08:22→20:25)
[2017-10-13] MEDS: ALLOPURINOL 100 MG TAB PO (08:22)
[2017-10-13] MEDS: METOPROLOL 25 MG TAB PO ×2 (08:23→20:26)
[2017-10-13] MEDS: CLOPIDOGREL 75 MG TAB PO (08:23)
[2017-10-13] MEDS: AMIODARONE 200 MG TAB NGT (08:23)
[2017-10-13] MEDS: EPOETIN ALFA (NESRD) 3,000 UNITS/ML VIAL SC (17:30)
[2017-10-13] MEDS: DOXAZOSIN 4 MG TAB PO (20:25)
[2017-10-13] MEDS: ZOLPIDEM 5 MG TAB PO (20:25)
[2017-10-13] MEDS: ATORVASTATIN 40 MG TAB PO (20:25)
[2017-10-13] MEDS: INSULIN GLARGINE [LANtus] 3 ML PEN SC (20:33)
[2017-10-14] MEDS: ACCU-CHEK XX ×2 (02:00→02:57)
[2017-10-14] MEDS: Insulin NOVOLOG SS MODERATE Algorithm (SS with meals and bedtime) SC ×4 (07:35→20:25)
[2017-10-14] MEDS: ASPIRIN 81 MG TAB PO (08:41)
[2017-10-14] MEDS: POLYETHYLENE GLYCOL 17 GM PACKET PO ×2 (08:41→20:24)
[2017-10-14] MEDS: METOPROLOL 25 MG TAB PO ×2 (08:42→20:25)
[2017-10-14] MEDS: AMIODARONE 200 MG TAB NGT (08:42)
[2017-10-14] MEDS: L ACIDOPHIL/B LACTIS/B LONGUM CAPSULE PO ×2 (08:43→20:24)
[2017-10-14] MEDS: CLOPIDOGREL 75 MG TAB PO (08:43)
[2017-10-14] MEDS: ALLOPURINOL 100 MG TAB PO (08:43)
[2017-10-14] MEDS: LINAGLIPTIN 5 MG TABLET PO (13:51)
[2017-10-14] MEDS: DOXAZOSIN 4 MG TAB PO (20:24)
[2017-10-14] MEDS: ATORVASTATIN 40 MG TAB PO (20:24)
[2017-10-14] MEDS: ZOLPIDEM 5 MG TAB PO (20:29)
[2017-10-15] MEDS: ACCU-CHEK XX (02:00)
[2017-10-15] MEDS: Insulin NOVOLOG SS MODERATE Algorithm (SS with meals and bedtime) SC ×4 (07:35→21:00)
[2017-10-15 07:50] LABS: HEMATOCRIT 28.3 % (42.0-52.0)
[2017-10-15] MEDS: POLYETHYLENE GLYCOL 17 GM PACKET PO ×2 (09:00→21:00)
[2017-10-15] MEDS: L ACIDOPHIL/B LACTIS/B LONGUM CAPSULE PO ×2 (09:50→21:08)
[2017-10-15] MEDS: CLOPIDOGREL 75 MG TAB PO (09:50)
[2017-10-15] MEDS: AMIODARONE 200 MG TAB NGT (09:51)
[2017-10-15] MEDS: ALLOPURINOL 100 MG TAB PO (09:52)
[2017-10-15] MEDS: LINAGLIPTIN 5 MG TABLET PO (09:53)
[2017-10-15] MEDS: ASPIRIN 81 MG TAB PO (09:53)
[2017-10-15] MEDS: METOPROLOL 25 MG TAB PO ×2 (09:53→21:11)
[2017-10-15] MEDS: EPOETIN ALFA (NESRD) 3,000 UNITS/ML VIAL SC (16:57)
[2017-10-15] MEDS: ATORVASTATIN 40 MG TAB PO (21:08)
[2017-10-15] MEDS: DOXAZOSIN 2 MG TAB PO (21:10)
[2017-10-15] MEDS: ZOLPIDEM 5 MG TAB PO (21:12)
[2017-10-16] MEDS: ACCU-CHEK XX (02:00)
[2017-10-16 07:09] LABS: ADD MAN DIFF? NO
[2017-10-16 07:14] LABS: ABNORMAL IP MESSAGE 1; BASOPHILS % 1.1 % (0.0-2.0); EOSINOPHILS # 0.2 10^3/ul (0.0-0.5); EOSINOPHILS % 5.7 % (0.0-7.0); HEMATOCRIT 27.4 % (42.0-52.0); HEMOGLOBIN 8.7 g/dl (14.0-18.0); LYMPHOCYTES # 0.6 10^3/ul (0.8-2.9); LYMPHOCYTES % 20.2 % (15.0-51.0); MEAN CORPUSCULAR HEMOGLOBIN 31.6 pg (29.0-33.0); MEAN CORPUSCULAR HGB CONC 31.8 g/dl (32.0-37.0); MEAN CORPUSCULAR VOLUME 99.6 fl (82.0-101.0); MEAN PLATELET VOLUME 12.1 fl (7.4-10.4); MONOCYTE # 0.5 10^3/ul (0.3-0.9); NEUTROPHIL # 1.6 10^3/ul (1.6-7.5); NEUTROPHILS % 55.6 % (39.0-77.0); PLATELET COUNT 137 10^3/UL (140-415); POSITIVE DIFF @See below; RED BLOOD COUNT 2.75 10^6/ul (4.70-6.10); RED CELL DISTRIBUTION WIDTH 15.4 % (11.5-14.5)
[2017-10-16 07:14] LABS: WHITE BLOOD COUNT 2.8 10^3/ul (4.8-10.8)
[2017-10-16 07:34] LABS: MAGNESIUM 1.8 mg/dl (1.7-2.5)
[2017-10-16] MEDS: Insulin NOVOLOG SS MODERATE Algorithm (SS with meals and bedtime) SC ×4 (07:35→20:36)
[2017-10-16 07:57] LABS: ANION GAP 13 (8-16); BLOOD UREA NITROGEN 29 mg/dl (7-20); CARBON DIOXIDE 28 mmol/L (21-31); CHLORIDE 106 mmol/L (97-110); CREATININE 1.92 mg/dl (0.61-1.24); GLUCOSE 92 mg/dl (70-220); POTASSIUM 4.4 mmol/L (3.5-5.1); SODIUM 143 mmol/L (135-144)
[2017-10-16] MEDS: L ACIDOPHIL/B LACTIS/B LONGUM CAPSULE PO ×2 (09:40→20:34)
[2017-10-16] MEDS: CLOPIDOGREL 75 MG TAB PO (09:42)
[2017-10-16] MEDS: METOPROLOL 25 MG TAB PO ×2 (09:42→20:35)
[2017-10-16] MEDS: ASPIRIN 81 MG TAB PO (09:42)
[2017-10-16] MEDS: AMIODARONE 200 MG TAB NGT (09:43)
[2017-10-16] MEDS: LINAGLIPTIN 5 MG TABLET PO (09:43)
[2017-10-16] MEDS: ALLOPURINOL 100 MG TAB PO (09:44)
[2017-10-16] MEDS: POLYETHYLENE GLYCOL 17 GM PACKET PO ×2 (09:46→20:36)
[2017-10-16] MEDS: ATORVASTATIN 40 MG TAB PO (20:34)
[2017-10-16] MEDS: ZOLPIDEM 5 MG TAB PO (20:35)
[2017-10-16] MEDS: DOXAZOSIN 2 MG TAB PO (20:35)
[2017-10-17] MEDS: ACCU-CHEK XX (02:00)
[2017-10-17] MEDS: Insulin NOVOLOG SS MODERATE Algorithm (SS with meals and bedtime) SC ×4 (07:35→20:34)
[2017-10-17] MEDS: METOPROLOL 25 MG TAB PO ×2 (09:00→20:34)
[2017-10-17] MEDS: ALLOPURINOL 100 MG TAB PO (09:03)
[2017-10-17] MEDS: ASPIRIN 81 MG TAB PO (09:03)
[2017-10-17] MEDS: POLYETHYLENE GLYCOL 17 GM PACKET PO ×2 (09:03→20:34)
[2017-10-17] MEDS: CLOPIDOGREL 75 MG TAB PO (09:03)
[2017-10-17] MEDS: AMIODARONE 200 MG TAB NGT (09:04)
[2017-10-17] MEDS: LINAGLIPTIN 5 MG TABLET PO (09:04)
[2017-10-17] MEDS: L ACIDOPHIL/B LACTIS/B LONGUM CAPSULE PO ×2 (09:06→20:34)
[2017-10-17] MEDS: EPOETIN ALFA (NESRD) 3,000 UNITS/ML VIAL SC (17:56)
[2017-10-17] MEDS: MAGNESIUM HYDROXIDE 30ML CUP PO (18:46)
[2017-10-17] MEDS: ATORVASTATIN 40 MG TAB PO (20:33)
[2017-10-17] MEDS: DOXAZOSIN 2 MG TAB PO (20:34)
[2017-10-17] MEDS: ZOLPIDEM 5 MG TAB PO (20:34)
[2017-10-18] MEDS: ACCU-CHEK XX (02:00)
[2017-10-18] MEDS: Insulin NOVOLOG SS MODERATE Algorithm (SS with meals and bedtime) SC ×4 (07:35→21:00)
[2017-10-18] MEDS: AMIODARONE 200 MG TAB NGT (08:09)
[2017-10-18] MEDS: ASPIRIN 81 MG TAB PO (08:09)
[2017-10-18] MEDS: ALLOPURINOL 100 MG TAB PO (08:09)
[2017-10-18] MEDS: POLYETHYLENE GLYCOL 17 GM PACKET PO ×2 (08:09→20:24)
[2017-10-18] MEDS: CLOPIDOGREL 75 MG TAB PO (08:09)
[2017-10-18] MEDS: LINAGLIPTIN 5 MG TABLET PO (08:10)
[2017-10-18] MEDS: METOPROLOL 25 MG TAB PO ×2 (08:10→20:26)
[2017-10-18] MEDS: L ACIDOPHIL/B LACTIS/B LONGUM CAPSULE PO ×2 (08:11→20:24)
[2017-10-18] MEDS: ATORVASTATIN 40 MG TAB PO (20:25)
[2017-10-18] MEDS: DOXAZOSIN 2 MG TAB PO (20:26)
[2017-10-18] MEDS: ZOLPIDEM 5 MG TAB PO (20:31)
[2017-10-19] MEDS: ACCU-CHEK XX (02:00)
[2017-10-19] MEDS: MAGNESIUM HYDROXIDE 30ML CUP PO (06:33)
[2017-10-19] MEDS: Insulin NOVOLOG SS MODERATE Algorithm (SS with meals and bedtime) SC (08:00)
[2017-10-19] MEDS: ASPIRIN 81 MG TAB PO (08:44)
[2017-10-19] MEDS: L ACIDOPHIL/B LACTIS/B LONGUM CAPSULE PO (08:44)
[2017-10-19] MEDS: ALLOPURINOL 100 MG TAB PO (08:45)
[2017-10-19] MEDS: AMIODARONE 200 MG TAB NGT (08:45)
[2017-10-19] MEDS: METOPROLOL 25 MG TAB PO (08:46)
[2017-10-19] MEDS: LINAGLIPTIN 5 MG TABLET PO (08:47)
[2017-10-19] MEDS: POLYETHYLENE GLYCOL 17 GM PACKET PO (08:47)
[2017-10-19] MEDS: CLOPIDOGREL 75 MG TAB PO (08:47)
== END 2017-10-19 11:20 | disposition home health service (06) | DRG 56 ==
LOC: VRC 18:54
PROVIDERS: Physical Medicine & Rehabilitation
DX: I69.398 Other sequelae of cerebral infarction (principal); N17.0 Acute kidney failure with tubular necrosis; I25.810 Atherosclerosis of coronary artery bypass graft(s) without angina pectoris; E87.0 Hyperosmolality and hypernatremia; I25.10 Atherosclerotic heart disease of native coronary artery without angina pectoris; I11.9 Hypertensive heart disease without heart failure; Z95.1 Presence of aortocoronary bypass graft; E11.9 Type 2 diabetes mellitus without complications; I48.0 Paroxysmal atrial fibrillation; D63.1 Anemia in chronic kidney disease; N40.0 Benign prostatic hyperplasia without lower urinary tract symptoms; I73.9 Peripheral vascular disease, unspecified; E83.42 Hypomagnesemia
CPT/HCPCS: 71045; 80048; 80053; 81001; 82270; 82607; 82746; 82962; 83540; 83735; 84100; 85014; 85018; 85025; 87081; 87086; 92507; 92526; 92610; 97110; 97112; 97116; 97150; 97163; 97167; 97530; 97535